=== PATIENT | female | born 1945 | race Caucasian/White ===

== ENCOUNTER 2017-02-03 18:22 | Inpatient (IN) | payer MEDICARE, OTHER ==
[~2017-02-03] VITALS: Ht 163.8 cm; Wt 84.8 kg
[2017-02-03] VITALS (7 sets, daily range): BP systolic 125–153; BP diastolic 64–67; PULSE 68–85; RESP 16–22; TEMP 98.1; O2SAT 94–98
[~2017-02-03 18:22] MED LIST: ASPI1TAB69 PO; IPRA0.03 EACH NARE; NIFE90TA2 PO; PLAV75TA29 PO; PRIL20CA9 PO; ROSU40 PO
--- NOTE | 2017-02-03 18:42 | PD ---
HPI Chief Complaint: Abdominal Pain Time Seen by Provider: 18:42 Travel History International Travel<30 days: No Contact w/Intl Traveler<30days: No Traveled to known affect area: No History of Present Illness HPI 71-year-old female with PMH of ischemic colitis presents to the ED via EMS for evaluation of sudden onset out of 10 intermittent, sharp lower abdominal pain. Pain radiates to the back. Patient also complains of nausea and watery diarrhea onset today. She denies fevers, chills, chest pain, shortness of breath , decreased appetite, dysuria. She states that this pain "feels the same" as previous episode of ischemic colitis. PCP Dr. Haywood. GI Dr. Orellana. [facility] Past Medical History Hx Anticoagulant Therapy: Yes Cancer: No Cardiovascular Problems: Yes Coronary Artery Disease: Yes Diabetes: No Endocrine: No Gastrointestinal Disorders: Yes (GERD, BAHENA'S ESOPHAGUS) Genitourinary: No Hepatitis: No Hiatal Hernia: No Hypertension: Yes Immune Disorder: No Musculoskeletal: Yes (RT WRIST FX. 2014) Neurologic: No Psychiatric: No Reproductive: No Thyroid Disease: No Past Surgical History Abdominal Surgery: No AICD: No Body Medical Devices: CARDIAC STENT Cardiac Surgery: No Ear Surgery: No Endocrine Surgery: No Eye Surgery: No Genitourinary Surgery: No Gynecologic Surgery: Yes (TOTAL HYSTERECTOMY) Hysterectomy: Yes Joint Replacement: No Neurologic Surgery: Yes (RIGHT CAROTID ENDARTERECTOMY WITH STENT) Oral Surgery: Yes (T&A) Pacemaker: No Thoracic Surgery: No Other Surgery: Yes (STENT TO COLON, BIOPSY OF THROAT) Social History Alcohol Use: Yes (OCCASIONAL) Tobacco Use: Yes (1PPD) Substance Use: No Allergies-Medications (Allergen,Severity, Reaction): Coded Allergies: No Known Allergies (Unverified , 02/03/17) Reported Meds & Prescriptions Reported Meds & Active Scripts Active Plavix (Clopidogrel Bisulfate) 75 Mg Tab 75 Mg PO DAILY 30 Days Reported Bupropion HCl 100 Mg Tab 150 Mg PO DAILY Gemfibrozil 600 Mg Tab 600 Mg PO BIDAC Take 30 minutes prior to breakfast and dinner. Prilosec (Omeprazole Magnesium) 20 Mg Tab 20 Mg PO DAILY Furosemide 40 Mg Tab 40 Mg PO DAILY Lisinopril 10 Mg Tab 10 Mg PO DAILY Metoprolol Succinate ER 24 HR (Metoprolol Succinate) 25 Mg Tab 25 Mg PO DAILY Aspirin 81 Mg Chew 81 Mg CHEW DAILY Potassium Chloride ER (Potassium Chloride) 10 Meq Cap 10 Meq PO HS Ipratropium Nasal 0.03% [place] 2 [place] EACH NARE BID Crestor (Rosuvastatin Calcium) 40 Mg Tab 40 Mg PO DAILY Review of Systems Except as stated in HPI: all other systems reviewed are Neg Physical Exam Narrative GENERAL: Well-nourished, well-developed white female in no acute distress. SKIN: Focused skin assessment warm/dry. HEAD: Normocephalic. EYES: No scleral icterus. No injection or drainage. NECK: Supple, trachea midline. No JVD or lymphadenopathy. CARDIOVASCULAR: Regular rate and rhythm without murmurs, gallops, or rubs. RESPIRATORY: Breath sounds equal bilaterally. No accessory muscle use. GASTROINTESTINAL: Abdomen soft, nondistended. Diffusely tender. No palpable masses. Hypoactive bowel sounds. MUSCULOSKELETAL: No cyanosis, or edema. BACK: Nontender without obvious deformity. No CVA tenderness. Data Data Last Documented VS Vital Signs Date Time Temp Pulse Resp B/P Pulse Ox O2 Delivery O2 Flow Rate FiO2 02/03/17 22:04 69 16 128/64 94 Room Air 02/03/17 18:34 98.1 Orders Complete Blood Count With Diff (02/03/17 18:48) Comprehensive Metabolic Panel (02/03/17 18:48) Lipase (02/03/17 18:48) Lactic Acid (02/03/17 18:48) Prothrombin Time / Inr (Pt) (02/03/17 18:48) Act Partial Throm Time (Ptt) (02/03/17 18:48) Urinalysis - C+S If Indicated (02/03/17 18:48) Iv Access Insert/Monitor (02/03/17 18:48) Ecg Monitoring (02/03/17 18:48) Oximetry (02/03/17 18:48) NPO (02/03/17 18:48) Sodium Chloride 0.9% Flush (Ns Flush) (02/03/17 19:00) Hydromorphone Pf Inj (Dilaudid Pf Inj) (02/03/17 19:00) Cta Abd/Pel W Iv Contrast W 3d (02/03/17 ) Iodixanol 320 Inj (Rad Ct) (Visipaque 32 (02/03/17 21:06) Urine Culture (02/03/17 20:50) Sodium Chlor 0.9% 1000 Ml Inj (Ns 1000 M (02/03/17 22:00) Ceftriaxone Inj (Rocephin Inj) (02/03/17 22:00) Consult Gastroenterology (02/03/17 ) Admit Order (Ed Use Only) (02/03/17 22:32) Labs Laboratory Tests Test 02/03/17 02/03/17 19:00 20:50 White Blood Count 13.0 TH/MM3 Red Blood Count 4.14 MIL/MM3 Hemoglobin 13.0 GM/DL Hematocrit 39.1 % Mean Corpuscular Volume 94.4 FL Mean Corpuscular Hemoglobin 31.4 PG Mean Corpuscular Hemoglobin 33.2 % Concent Red Cell Distribution Width 14.6 % Platelet Count 153 TH/MM3 Mean Platelet Volume 8.5 FL Neutrophils (%) (Auto) 87.3 % Lymphocytes (%) (Auto) 6.7 % Monocytes (%) (Auto) 5.5 % Eosinophils (%) (Auto) 0.0 % Basophils (%) (Auto) 0.5 % Neutrophils # (Auto) 11.3 TH/MM3 Lymphocytes # (Auto) 0.9 TH/MM3 Monocytes # (Auto) 0.7 TH/MM3 Eosinophils # (Auto) 0.0 TH/MM3 Basophils # (Auto) 0.1 TH/MM3 CBC Comment DIFF FINAL Differential Comment Prothrombin Time 11.2 SEC Prothromb Time International 1.0 RATIO Ratio Activated Partial 22.8 SEC Thromboplast Time Sodium Level 137 MEQ/L Potassium Level 4.0 MEQ/L Chloride Level 103 MEQ/L Carbon Dioxide Level 23.0 MEQ/L Anion Gap 11 MEQ/L Blood Urea Nitrogen 22 MG/DL Creatinine 1.60 MG/DL Estimat Glomerular Filtration 32 ML/MIN Rate Random Glucose 125 MG/DL Lactic Acid Level 1.4 mmol/L Calcium Level 9.5 MG/DL Total Bilirubin 0.5 MG/DL Aspartate Amino Transf 19 U/L (AST/SGOT) Alanine Aminotransferase 22 U/L (ALT/SGPT) Alkaline Phosphatase 146 U/L Total Protein 7.5 GM/DL Albumin 3.7 GM/DL Lipase 208 U/L Urine Color YELLOW Urine Turbidity HAZY Urine pH 5.5 Urine Specific [place] 1.013 Urine Protein 100 mg/dL Urine Glucose (UA) NEG mg/dL Urine Ketones NEG mg/dL Urine Occult Blood SMALL Urine Nitrite NEG Urine Bilirubin NEG Urine Urobilinogen LESS THAN 2.0 MG/DL Urine Leukocyte Esterase NEG Urine RBC 5 /hpf Urine WBC 17 /hpf Urine WBC Clumps FEW Urine Squamous Epithelial 2 /hpf Cells Urine Amorphous Sediment RARE Urine Bacteria RARE /hpf Urine Hyaline Casts 12 /lpf Urine Mucus FEW /lpf Microscopic Urinalysis Comment CULTURE INDICATED MDM Medical Decision Making Medical Screen Exam Complete: Yes Emergency Medical Condition: Yes Differential Diagnosis UTI versus colitis versus mesenteric ischemia versus other Narrative Course 71-year-old female with PMH of ischemic colitis presents to the ED via EMS for evaluation of sudden onset out of 10 intermittent, sharp lower abdominal pain. Pain radiates to the back. Patient also complains of nausea and watery diarrhea onset today. She states that this pain "feels the same" as previous episode of ischemic colitis. PCP Dr. Haywood. GI Dr. Correa. Patient is afebrile, normotensive on presentation. The abdomen is diffusely tender to palpation. No palpable masses. Hypoactive bowel sounds. No CVA tenderness. IV was established. Patient was administered 1 L normal saline, 1 mg Dilaudid. CBC: WBC 13 with a left shift. Hemoglobin 13. Coags: INR 1.0. CMP: BUN, 22, creatinine 1.6. Lactic 1.4. Lipase 208. UA: Hazy, small cold blood, few wbc clumps, rare bacteria. Culture pending. CTA of the abdomen and pelvis (preliminary reading by Dr. Light) reveals extensive atherosclerosis with interval stent placement in the left iliac artery. Right common iliac artery occluded. TONY occluded. Abnormal descending colon with wall thickening and inflammatory changes. Questionable colitis versus ischemia. Awaiting formal reading by the vascular radiologist in the AM. Patient was administered 1 g Rocephin IV. GI consult placed. Plan to admit to the medicine service for management of colitis. Discussed this plan with the patient who is agreeable. I spoke with Dr. Haywood who agrees to accept the patient to the medicine service. Please see medicine and GI notes for disposition. Landy Ornelas Feb 03, 2017 18:42
[2017-02-03] MEDS ORDERED: POTA10CA PO (18:57)
[2017-02-03] MEDS ORDERED: PRIL20TA2 PO (18:57)
[2017-02-03] MEDS ORDERED: ASPI81CH CHEW (18:57)
[2017-02-03] MEDS ORDERED: FURO40TA PO (18:57)
[2017-02-03] MEDS ORDERED: GEMF600T PO (18:57)
[2017-02-03] MEDS ORDERED: METO25TA6 PO (18:57)
[2017-02-03] MEDS ORDERED: LISI10TA3 PO (18:57)
[2017-02-03] MEDS ORDERED: BUPR100T4 PO (18:58)
[2017-02-03] MEDS ORDERED: SODIUM CHLORIDE 0.9% FLUSH 10 ML FLUSH IV FLUSH PRN ×2 (19:00→22:45)
[2017-02-03] MEDS ORDERED: HYDROmorphone HCL PF 1 MG/ML VIAL IV PUSH ONE (19:00)
[2017-02-03 19:26] LABS: AUTOMATED NEUTROPHIL # 11.3 TH/MM3 (1.8-7.7); BASOPHIL # 0.1 TH/MM3 (0-0.2); BASOPHIL % 0.5 % (0.0-2.0); HEMATOCRIT 39.1 % (35.0-46.0); HEMO FLAGS DIFF FINAL; LYMPH % 6.7 % (9.0-44.0); LYMPHOCYTE # 0.9 TH/MM3 (1.0-4.8); MEAN CELL VOLUME 94.4 FL (80.0-100.0); MEAN CORPUSCULAR HEMOGLOBIN 31.4 PG (27.0-34.0); MEAN CORPUSCULAR HGB CONC 33.2 % (32.0-36.0); MONO % 5.5 % (0.0-8.0); NEUT % 87.3 % (16.0-70.0); PLATELET COUNT 153 TH/MM3 (150-450); RED BLOOD COUNT 4.14 MIL/MM3 (4.00-5.30); RED CELL DISTRIBUTION WIDTH 14.6 % (11.6-17.2)
[2017-02-03 19:37] LABS: APTT (PATIENT) 22.8 SEC (24.3-30.1); PROTHROMBIN TIME - PATIENT 11.2 SEC (9.8-11.6)
[2017-02-03 19:39] LABS: ANION GAP 11 MEQ/L (5-15); AST (GOT) 19 U/L (15-37); BLOOD UREA NITROGEN 22 MG/DL (7-18); CHLORIDE 103 MEQ/L (98-107); GLOMERULAR FILTRATION RATE 32 ML/MIN (>89); SODIUM (NA) 137 MEQ/L (136-145)
[2017-02-03 19:40] LABS: ALT (GPT) 22 U/L (10-53)
[2017-02-03 19:42] LABS: ALKALINE PHOSPHATASE 146 U/L (45-117); TOTAL BILIRUBIN ADULT 0.5 MG/DL (0.2-1.0)
[2017-02-03] MEDS ORDERED: IODIXANOL 320 MG/ML 10 ML VIAL (for Rad CT) IV ONE (21:06)
[2017-02-03 21:25] LABS: BACTERIA, URINE RARE /hpf; BLOOD, URINE SMALL (NEG); COMMENT (UR) CULTURE INDICATED; CULTURE IF INDICATED CULTURE INDICATED; GLUCOSE,URINE NEG (NEG); HYALINE CAST, URINE 12 /lpf (RARE); KETONE, URINE NEG (NEG); MUCUS URINE FEW /lpf (OCC); NITRITE,URINE NEG (NEG); PH, URINE 5.5 (5.0-8.5); SQUAMOUS EPITHELIAL CELL URINE 2 /hpf (0-5); URINE COLOR YELLOW (YELLW/STRAW)
[2017-02-03] MEDS ORDERED: cefTRIAXone INJ 1,000 MG in SODIUM CHLORIDE 0.9% INJ 100 ML IV ONE (22:00)
[2017-02-03] MEDS ORDERED: SODIUM CHLOR 0.9% 1000 ML INJ 1,000 ML IV ONE (22:00)
[2017-02-03] MEDS ORDERED: LEVOFLOXACIN 750 MG PREMIX INJ 150 ML IV SCH ×2 (22:30→22:45)
[2017-02-03] MEDS ORDERED: SODIUM CHLOR 0.9% 1000 ML INJ 1,000 ML IV SCH (22:41)
[2017-02-03] MEDS ORDERED: LACTULOSE SYRUP 20 GM/30 ML CUP PO PRN (22:45)
[2017-02-03] MEDS ORDERED: SENNOSIDES 8.6 MG TAB PO PRN (22:45)
[2017-02-03] MEDS ORDERED: LORazepam 0.5 MG TAB PO PRN (22:45)
[2017-02-03] MEDS ORDERED: ONDANSETRON HCL 4 MG/2 ML VIAL IVP PRN (22:45)
[2017-02-03] MEDS ORDERED: BISACODYL 10 MG SUPP RECTAL PRN (22:45)
[2017-02-03] MEDS ORDERED: NALOXONE HCL 0.4 MG/ML AMP IV PRN (22:45)
[2017-02-03] MEDS ORDERED: PROCHLORPERAZINE 25 MG SUPP RECTAL PRN (22:45)
[2017-02-03] MEDS ORDERED: ACETAMINOPHEN 325 MG TAB PO PRN (22:45)
[2017-02-03] MEDS ORDERED: MAGNESIUM HYDROXIDE SUSP 30 ML CUP PO PRN (22:45)
[2017-02-03] MEDS ORDERED: PILL SPLITTER OTHER PRN (22:45)
[2017-02-03] MEDS: PANTOPRAZOLE SODIUM 40 MG VIAL IV PUSH SCH (23:50)
[2017-02-03] MEDS: DEXT 5%-NACL 0.9% 1000 ML INJ 1,000 ML IV SCH (23:50)
[2017-02-04] VITALS (10 sets, daily range): BP systolic 105–151; BP diastolic 52–67; PULSE 71–83; RESP 16–20; TEMP 97.8–98.1; O2SAT 91–95
[2017-02-04] MEDS: metroNIDAZOLE 500 MG INJ 100 ML IV SCH ×3 (01:03→17:03)
[2017-02-04 07:29] LABS: AUTOMATED NEUTROPHIL # 7.7 TH/MM3 (1.8-7.7); BASOPHIL % 0.2 % (0.0-2.0); EOSINOPHIL % 0.2 % (0.0-4.0); HEMATOCRIT 36.8 % (35.0-46.0); HEMO FLAGS DIFF FINAL; LYMPH % 12.4 % (9.0-44.0); LYMPHOCYTE # 1.2 TH/MM3 (1.0-4.8); MEAN CELL VOLUME 94.3 FL (80.0-100.0); MEAN CORPUSCULAR HEMOGLOBIN 31.5 PG (27.0-34.0); MEAN CORPUSCULAR HGB CONC 33.4 % (32.0-36.0); MONO % 7.4 % (0.0-8.0); NEUT % 79.8 % (16.0-70.0); PLATELET COUNT 122 TH/MM3 (150-450); RED CELL DISTRIBUTION WIDTH 14.5 % (11.6-17.2); WHITE BLOOD COUNT 9.6 TH/MM3 (4.0-11.0)
[2017-02-04 07:53] LABS: BICARBONATE 23.4 MEQ/L (21.0-32.0); POTASSIUM 3.5 MEQ/L (3.5-5.1)
--- NOTE | 2017-02-04 08:14 | RADRPT ---
EXAM DATE/TIME: 02/03/2017 20:42 [place] COMPARISON: AORTOGRAM, ABDOMINAL, July 17, 2016, 0:00. ANGIOGRAM, SELECT + VESSEL, July 17, 2016, 0:00. CTA ABDOMEN & PELVIS W 3D RECON, July 15, 2016, 18:23. INDICATIONS : Low abdomen pain. Evaluate for mesenteric ischemia. IV CONTRAST: 50 cc Visipaque (iodixanol) IV ORAL CONTRAST: No oral contrast ingested. RADIATION DOSE: 20.28 CTDIvol (mGy) MEDICAL HISTORY : Cardiovascular disease. Hypertension. Diverticulitis.GERD SURGICAL HISTORY : None. ENCOUNTER: Initial ACUITY: 1 day PAIN SCALE: 8/10 LOCATION: Bilateral low abdomen TECHNIQUE: Volumetric scanning was performed using a multi-row detector CT scanner. The data was post processed with a variety of visualization algorithms including full volume maximum intensity projection, multi -planar sliding thin slab reformation, curved planar reformation, and surface rendering techniques. Using automated exposure control and adjustment of the mA and/or kV according to patient size, radiat ion dose was kept as low as reasonably achievable to obtain optimal diagnostic quality images. FINDINGS: ABDOMINAL AORTA: Advanced atherosclerotic disease throughout the visualized aorta. Bulky calcified lacerated plaque in the infrarenal aorta results in moderate stenosis. The aorta is non-aneurysmal. BIFURCATION: Heavily calcified measuring 1 cm. VISCERAL ARTERIES: Interval placement of celiac artery stent. The stent is patent without significant IntraStent stenosi s. There is sharp angulation of the celiac artery just beyond the stent and residual poststenotic dil atation which accentuates the transition point. Suspect mild stenosis in the distal emory-stent region . There is variant celiac anatomy with separate origin of the right hepatic artery directly from the celiac trunk. Therefore, the common hepatic artery is relatively small in caliber with small caliber gastroduodenal artery. There is approximately 50% stenosis of the SMA origin due to mixed plaque. TONY origin is occluded with with reconstitution proximally. There are single bilateral renal arteries. T he left renal artery is patent. There is mild to moderate stenosis of the right renal artery origin. RIGHT PELVIS: Right common artery is occluded at the origin. There is reconstitution of the external iliac arteries the internal iliac artery external iliac artery is diffusely small in caliber but otherwise patent. Similarly, the right common femoral artery and visualized portions of the SFA and profunda are small in caliber but patent. LEFT PELVIS: There is severe stenosis of the proximal left common iliac artery due to mixed plaque. Internal iliac is patent. Extra iliac is patent. Common femoral and visualized portions of the SFA and profunda are patent. NON-ANGIOGRAPHIC CT ABDOMEN FINDINGS: The visualized lung bases are clear. The liver, spleen, and pancreas are normal in appearance. Redemo nstration of adreniform enlargement of the adrenal glands bilaterally. Redemonstration of bilateral r enal cysts. There is an indeterminate cystic lesion in the mid left kidney which measures 1.83 x 1.74 cm, Hounsfield units 41. This previously measured 1.75 x 1.81 cm. Multiple additional subcentimeter cystic lesions are too small to fully characterize. Kidneys are otherwise unremarkable without eviden ce for radiopaque renal calculi or hydronephrosis. The examination of the bowel demonstrates colonic wall thickening and pericolonic stranding involving nearly the entire descending colon extending to t he proximal sigmoid colon. The more distal sigmoid and rectum are decompressed but otherwise normal. No evidence for pneumatosis, abscess or significant diverticulosis in the involved segment. Appendix is visualized and normal. Main of the bowel is normal in appearance. NON-ANGIOGRAPHIC CT PELVIS FINDINGS: The bladder is decompressed. Uterus is surgically absent. No significant adnexal mass. Degenerative c hanges of the left SI joint. Mild compression deformity of L1 vertebral body similar to previous exam . Degenerative changes of the lower lumbar spine. No abnormal lytic blastic bony lesions. CONCLUSION: 1. Status post celiac artery stent placement. Stent is patent. Probable mild stenosis at the distal s tent junction exaggerated by vessel tortuosity and post stenotic dilatation. However, there is non-st andard celiac anatomy with separate origin of the right hepatic artery from the celiac trunk. This co rrelates to small caliber common hepatic artery and small caliber gastroduodenal artery with potentia l implications for collateral blood flow to the SMA. 2. Likely moderate, up to 50%, stenosis of the SMA origin. TONY is occluded at the origin. There is as sociated diffuse descending colon colitis, perhaps slightly progressed from previous examination. Thi s is concerning for continued ischemia in the TONY territory. 3. Occluded right common iliac artery origin with severe stenosis of the proximal left common iliac a rtery, unchanged from prior exam. The patient may benefit from inflow intervention. 4. 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 Typica l followup course for Bosniak 2F lesions is approximately 4 years (from 06/2016) with imaging perform ed at 6 month intervals. This may be ultrasound examination if this lesion is sufficiently visualized with ultrasound. Juan Davison MD on February 04, 2017 at 7:18 Board Certified Radiologist. This report was verified electronically.
[2017-02-04] MEDS: SODIUM CHLORIDE 0.9% FLUSH 10 ML FLUSH IV FLUSH SCH ×2 (09:24→21:00)
[2017-02-04] MEDS: ASPIRIN 81 MG CHEW TAB CHEW SCH (09:24)
[2017-02-04] MEDS: MORPHINE SULFATE 8 MG/ML INJ IV PUSH PRN ×4 (09:25→23:53)
[2017-02-04] MEDS: DEXT 5%-NACL 0.9% 1000 ML INJ 1,000 ML IV SCH ×2 (09:26→23:09)
[2017-02-04] MEDS: CLOPIDOGREL 75 MG TAB PO SCH (09:31)
--- NOTE | 2017-02-04 10:43 | PD.CONS ---
HPI History of Present Illness This is a 71 year old lady with hx ischemic colitis who presented to the ER yesterday with severe diarrhea and abd pain. Onset yesterday. The pain was lower abdominal, sharp, crampy, no aggravating or relieving factors. It is currently relieved with pain meds. She also had episodes of diarrhea followed by some watery blood that seemed independent of stool.Multiple episodes of this. She had cold sweats. SHe had similar sx 6m ago and was in ICU for 6 days and found to have ischemic colitis. She had celiac artery stenting after the last episode. Denies sick contacts, recent travel, recent use antibiotics. She does take plavix since her last hospitalization in June. SHe had colonoscopy at that hospitalization also, does not recall findings. (Nancy Ramsey) PFSH Past Medical History HTN hyperlipidemia pt cannot recall rest Past Surgical History carotic endarterectomy, right hysterectomy coronary artery stenting celiac artery stent insertion (Nancy Ramsey) Coded Allergies: No Known Allergies (Unverified , 02/03/17) Family History none Social History ETOH- occasional smokes 1ppd no illicit drugs (Nancy Ramsey) Review of Systems Constitutional: DENIES: Diaphoretic episodes Eyes: DENIES: Blurred vision Ears, nose, mouth, throat: DENIES: Hearing loss Respiratory: DENIES: Hemoptysis Cardiovascular: DENIES: Chest pain Gastrointestinal: COMPLAINS OF: Abdominal pain, Bloody stools, Diarrhea, DENIES: Black stools, Constipation, Nausea, Vomiting Genitourinary: DENIES: Hematuria Musculoskeletal: DENIES: Muscle aches Integumentary: DENIES: Abnormal pigmentation Neurologic: DENIES: Abnormal gait Psychiatric: DENIES: Confusion (Nancy Ramsey) GI Exam Vitals I&O Vital Signs Date Time Temp Pulse Resp B/P Pulse Ox O2 Delivery O2 Flow Rate FiO2 02/04/17 08:25 94 21 02/04/17 07:56 98.1 76 20 139/63 94 02/04/17 03:59 72 02/04/17 01:18 97.9 72 20 105/52 93 02/04/17 00:35 71 02/03/17 23:51 85 18 141/65 95 Room Air 02/03/17 22:04 69 16 128/64 94 Room Air 02/03/17 20:59 84 16 125/64 94 Room Air 02/03/17 20:21 77 18 153/67 94 Room Air 02/03/17 19:17 79 18 140/65 98 Room Air 02/03/17 18:39 22 02/03/17 18:39 71 22 137/64 98 Room Air 02/03/17 18:34 98.1 68 22 137/64 98 Imaging Last Impressions Abdomen/Pelvis CT 02/03/17 0000 Signed Impressions: Service Date/Time: Friday, February 03, 2017 20:42 - CONCLUSION: 1. Status post celiac artery stent placement. Stent is patent. Probable mild stenosis at the distal stent junction exaggerated by vessel tortuosity and post stenotic dilatation. However, there is non-standard celiac anatomy with separate origin of the right hepatic artery from the celiac trunk. This correlates to small caliber common hepatic artery and small caliber gastroduodenal artery with potential implications for collateral blood flow to the SMA. 2. Likely moderate , up to 50%%, stenosis of the SMA origin. TONY is occluded at the origin. There is associated diffuse descending colon colitis, perhaps slightly progressed from previous examination. This is concerning for continued ischemia in the TONY territory. 3. 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 The patient may benefit from inflow intervention. 4. 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 Typical followup course for Bosniak 2F lesions is approximately 4 years (from 06/2016) with imaging performed at 6 month intervals. This may be ultrasound examination if this lesion is sufficiently visualized with ultrasound. Juan Davison MD Laboratory Test 02/03/17 02/03/17 02/04/17 19:00 20:50 06:46 White Blood Count 13.0 TH/MM3 9.6 TH/MM3 Red Blood Count 4.14 MIL/MM3 3.90 MIL/MM3 Hemoglobin 13.0 GM/DL 12.3 GM/DL Hematocrit 39.1 % 36.8 % Mean Corpuscular Volume 94.4 FL 94.3 FL Mean Corpuscular Hemoglobin 31.4 PG 31.5 PG Mean Corpuscular Hemoglobin 33.2 % 33.4 % Concent Red Cell Distribution Width 14.6 % 14.5 % Platelet Count 153 TH/MM3 122 TH/MM3 Mean Platelet Volume 8.5 FL 8.6 FL Neutrophils (%) (Auto) 87.3 % 79.8 % Lymphocytes (%) (Auto) 6.7 % 12.4 % Monocytes (%) (Auto) 5.5 % 7.4 % Eosinophils (%) (Auto) 0.0 % 0.2 % Basophils (%) (Auto) 0.5 % 0.2 % Neutrophils # (Auto) 11.3 TH/MM3 7.7 TH/MM3 Lymphocytes # (Auto) 0.9 TH/MM3 1.2 TH/MM3 Monocytes # (Auto) 0.7 TH/MM3 0.7 TH/MM3 Eosinophils # (Auto) 0.0 TH/MM3 0.0 TH/MM3 Basophils # (Auto) 0.1 TH/MM3 0.0 TH/MM3 CBC Comment DIFF FINAL DIFF FINAL Differential Comment Prothrombin Time 11.2 SEC Prothromb Time International 1.0 RATIO Ratio Activated Partial 22.8 SEC Thromboplast Time Sodium Level 137 MEQ/L 141 MEQ/L Potassium Level 4.0 MEQ/L 3.5 MEQ/L Chloride Level 103 MEQ/L 107 MEQ/L Carbon Dioxide Level 23.0 MEQ/L 23.4 MEQ/L Anion Gap 11 MEQ/L 11 MEQ/L Blood Urea Nitrogen 22 MG/DL 22 MG/DL Creatinine 1.60 MG/DL 1.19 MG/DL Estimat Glomerular Filtration 32 ML/MIN 45 ML/MIN Rate Random Glucose 125 MG/DL 121 MG/DL Lactic Acid Level 1.4 mmol/L Calcium Level 9.5 MG/DL 8.8 MG/DL Total Bilirubin 0.5 MG/DL Aspartate Amino Transf 19 U/L (AST/SGOT) Alanine Aminotransferase 22 U/L (ALT/SGPT) Alkaline Phosphatase 146 U/L Total Protein 7.5 GM/DL Albumin 3.7 GM/DL Lipase 208 U/L Urine Color YELLOW Urine Turbidity HAZY Urine pH 5.5 Urine Specific [place] 1.013 Urine Protein 100 mg/dL Urine Glucose (UA) NEG mg/dL Urine Ketones NEG mg/dL Urine Occult Blood SMALL Urine Nitrite NEG Urine Bilirubin NEG Urine Urobilinogen LESS THAN 2.0 MG/DL Urine Leukocyte Esterase NEG Urine RBC 5 /hpf Urine WBC 17 /hpf Urine WBC Clumps FEW Urine Squamous Epithelial 2 /hpf Cells Urine Amorphous Sediment RARE Urine Bacteria RARE /hpf Urine Hyaline Casts 12 /lpf Urine Mucus FEW /lpf Microscopic Urinalysis Comment CULTURE INDICATED Date/Time Procedure Status Source Growth 02/03/17 20:50 Urine Culture Received Urine Clean Catch Pending Physical Examination HEENT: EOMI; normocephalic; atraumatic; no jaundice. CHEST: CTA CARDIAC: RRR ABDOMEN: Soft, obese, mild lower abdominal TTP; no hepatosplenomegaly; bowel sounds are present in all four quadrants. EXTREMITIES: No clubbing, cyanosis, or edema. SKIN: Normal; no rash; no jaundice. [employer] IN[employer] CONTROL CLERK: No focal deficits; alert and oriented times three. (Nancy Ramsey) Assessment and Plan Plan ASSESSMENT - diarrhea, rectal bleeding - hx ischemic colitis with previous stenting 2015. Dr. Cruz d/w IR. CT 02-03-17 --> 1. Status post celiac artery stent placement. Stent is patent. Probable mild stenosis at the distal stent junction exaggerated by vessel tortuosity and post stenotic dilatation. However, there is non-standard celiac anatomy with separate origin of the right hepatic artery from the celiac trunk. This correlates to small caliber common hepatic artery and small caliber gastroduodenal artery with potential implications for collateral blood flow to the SMA. 2. Likely moderate, up to 50%%, stenosis of the SMA origin. TONY is occluded at the origin. There is associated diffuse descending colon colitis, perhaps slightly progressed from previous examination. This is concerning for continued ischemia in the TONY territory. 3. 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 The patient may benefit from inflow intervention. 4. 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 Typical followup course for Bosniak 2F lesions is approximately 4 years (from 06/2016) with imaging performed at 6 month intervals. This may be ultrasound examination if this lesion is sufficiently visualized with ultrasound. PLAN - consult vascular surgeon - NPO for now - monitor HH - supportive care - further recommendations to follow This pt seen by myself and Dr Cruz and this note is written on his behalf ( Nancy Ramsey) Physician Comments Discussed with IR for possible re-stenting after vascular surgery evaluation. Further recommendations to follow. (Jovan Cruz MD) Nancy Ramsey Feb 04, 2017 10:43 Jovna Cruz MD Feb 04, 2017 23:47
[2017-02-04] MEDS: buPROPion HCL 100 MG TAB PO SCH (12:21)
--- NOTE | 2017-02-04 15:08 | MH ---
cc: SCOOTER HAYWOOD MD DATE OF ADMISSION: 02/04/2017 CHIEF COMPLAINT Abdominal pain, diarrhea. HISTORY OF PRESENT ILLNESS Karen Knight is a 71-year-old female. She has been a long-time smoker and has had difficulty cutting down on the cigarettes. Unfortunately she developed severe diarrhea and abdominal pain and presented to the emergency room. I was called for admission for colitis versus vascular occlusion. She had celiac artery stent placement, however, there was probable stenosis at the stent junction and stenosis of the SMA origin. There is occlusion of the TONY. There is also noted descending colon colitis. LABORATORY WBC is within normal limits. CBC is normal except for platelets 122. Creatinine 1.19, potassium 3.5. INR 1.0. IMAGING As noted above for celiac artery stent placement with some occlusion. PAST MEDICAL HISTORY 1. Coronary artery disease. 2. Kincaid's esophagus. 3. Hypertension. PAST SURGICAL HISTORY 1. Cardiac stent placement. 2. Total hysterectomy. 3. Right carotid endarterectomy. 4. SMA stent. SOCIAL HISTORY One pack per day smoker. No illicit drug usage. ALLERGIES No known drug allergies. MEDICATIONS Home medications: 1. Bupropion. 2. Gemfibrozil. 3. Prilosec. 4. Lasix. 5. Lisinopril. 6. Metoprolol. 7. Aspirin. 8. Potassium. 9. Ipratropium nasal. 10. Crestor REVIEW OF SYSTEMS Weakness, diarrhea, left shoulder pain. We did a recent MRI in my office. Otherwise negative 14-point review of systems except as above. PHYSICAL EXAMINATION VITAL SIGNS: Temperature 98.0, pulse 82, respirations 16, blood pressure 151/67, pulse oximetry 95. GENERAL: In general she is an alert female. She is laying flat. She is ill-appearing. HEENT: Oropharynx is clear. CHEST: Clear. CARDIOVASCULAR: Regular rate and rhythm. ABDOMEN: Soft. Tender diffusely in all quadrants to light palpation. Normoactive bowel sounds. There is some rebound in the left lower quadrant. EXTREMITIES: 1+ edema. ASSESSMENT 1. 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 2. SMA stenosis. 3. Descending colitis. 4. Right common iliac artery severe stenosis. 5. Hypertension. 6. Hyperglycemia. 7. Renal insufficiency. 8. Elevated LFTs. 9. COPD. 10. Smoker. 11. Left rotator cuff tear. PLAN 1. n.p.o. 2. D5 normal saline. 3. Vascular surgery consult. 4. IV Levaquin. 5. IV Flagyl. 6. Infectious Disease consult for likely ischemic colitis versus more unlikely infectious colitis. 7. Clonidine p.r.n. 8. Plavix 75 mg daily. 9. Ativan p.r.n. 10. Morphine p.r.n. 11. Protonix 40 mg IV daily. 12. Urine culture. 13. Telemetry. 14. SCDs. 15. TEDs. 16. Inpatient admission for the above diagnosis and plan. The patient would without inpatient admission from ischemic bowel or infectious colitis. Expect 3-4 days inpatient admission; however, if she needs intervention it could likely be longer. 17. Will continue with smoking cessation aggressively as I had recently started her on Wellbutrin. Scooter Haywood MD RP/HUMERA /2:29 PM /2:57 PM
--- NOTE | 2017-02-04 18:51 | PD.VS.CON ---
History of Present Illness Chief Complaint: Pt c/o weakness, dizziness and lower sharp abdominal pain Pt reported "multiple episodes" of diarrhea times 1 day Consult Requested by: Dr. Ramsey History of Present Illness Mrs. Knight is an ill appearing 71 year old pleasant female patient with a PMH of HTN, CAD, Kincaid's Esophagus and recent celiac artery stent insertion ( 6M ago). Pt arrived to the ED c/o multiple diarrhea episodes with sharp lower quadrant abdominal pain times 1 day. Pt is with loss of appetite and reported that her pain is constant and is not exacerbated after eating meals. Patient noted pain is controlled with pain mediation at this time. Pt denies nausea and vomiting (Maria Antonia Lockwood) Past/Family/Social History Past Medical History HTN CAD Kincaid's Esophagus Hyperlipidemia Past Surgical History R CEA Hysterectomy Coronary Artery Stenting Celiac Artery Stent Insertion Social History EtOH- Occasional Current everyday smoker (1 pack) No illicit drug usage Family History Pt denies (Maria Antonia Lockwood) Home Medications Active Scripts Clopidogrel (Plavix)75 Mg Tab75 Mg PO DAILY 30 Days Prov:Kelton Anaya MD 07/19/16 Reported Medications Bupropion HCl 100 Mg Tsh384 Mg PO DAILY Ref 0 02/03/17 Gemfibrozil 600 Mg Jhh544 Mg PO BIDAC #60 TAB Ref 0 Take 30 minutes prior to breakfast and dinner. 02/03/17 Omeprazole Magnesium (Prilosec)20 Mg Tab20 Mg PO DAILY 02/03/17 Furosemide 40 Mg Tab40 Mg PO DAILY #30 TAB Ref 0 02/03/17 Lisinopril 10 Mg Tab10 Mg PO DAILY #30 TAB Ref 0 02/03/17 Metoprolol Succinate ER 24 HR 25 Mg Tab25 Mg PO DAILY #30 TAB Ref 0 02/03/17 Aspirin 81 Mg Chew81 Mg CHEW DAILY Ref 0 02/03/17 Potassium Chloride ER 10 Meq Cap10 Meq PO HS #30 CAP Ref 0 02/03/17 Ipratropium Nasal 0.03% Spray2 [place] EACH NARE BID 07/02/16 Rosuvastatin (Crestor)40 Mg Tab40 Mg PO DAILY Ref 0 07/02/16 Discontinued Scripts Nifedipine (Nifedipine ER)90 Mg Tab90 Mg PO DAILY #30 TAB Ref 1 Prov:Kelton Anaya MD 07/19/16 Coded Allergies: No Known Allergies (Unverified , 02/03/17) Review of Systems Gastrointestinal: COMPLAINS OF: Abdominal pain, Diarrhea (Maria Antonia Lockwood) Physical Exam Vitals/I&O Date Time Temp Pulse Resp B/P Pulse Ox O2 Delivery O2 Flow Rate FiO2 02/04/17 15:34 98.1 72 16 140/65 95 02/04/17 14:42 18 02/04/17 11:52 98.0 82 16 151/67 95 02/04/17 08:25 94 21 02/04/17 08:22 82 02/04/17 07:56 98.1 76 20 139/63 94 02/04/17 03:59 72 02/04/17 01:18 97.9 72 20 105/52 93 02/04/17 00:35 71 02/03/17 23:51 85 18 141/65 95 Room Air 02/03/17 22:04 69 16 128/64 94 Room Air 02/03/17 20:59 84 16 125/64 94 Room Air 02/03/17 20:21 77 18 153/67 94 Room Air 02/03/17 19:17 79 18 140/65 98 Room Air 02/03/17 18:39 22 02/03/17 18:39 71 22 137/64 98 Room Air 02/03/17 18:34 98.1 68 22 137/64 98 02/04/17 02/04/17 02/04/17 07:00 15:00 23:00 Intake Total 830 ml Output Total 200 ml Balance 630 ml Neuro: CN 2-12 A&OX3 Heart: +S1,S2 Lungs: BS CTA Abdomen: Lower Abdominal pain Pt tender to touch all 4 quad worse on the Left upper and lower side +BS (Maria Antonia Lockwood) Laboratory Tests Test 02/03/17 02/03/17 02/04/17 19:00 20:50 06:46 White Blood Count 13.0 9.6 Red Blood Count 4.14 3.90 Hemoglobin 13.0 12.3 Hematocrit 39.1 36.8 Mean Corpuscular Volume 94.4 94.3 Mean Corpuscular Hemoglobin 31.4 31.5 Mean Corpuscular Hemoglobin 33.2 33.4 Concent Red Cell Distribution Width 14.6 14.5 Platelet Count 153 122 Mean Platelet Volume 8.5 8.6 Neutrophils (%) (Auto) 87.3 79.8 Lymphocytes (%) (Auto) 6.7 12.4 Monocytes (%) (Auto) 5.5 7.4 Eosinophils (%) (Auto) 0.0 0.2 Basophils (%) (Auto) 0.5 0.2 Neutrophils # (Auto) 11.3 7.7 Lymphocytes # (Auto) 0.9 1.2 Monocytes # (Auto) 0.7 0.7 Eosinophils # (Auto) 0.0 0.0 Basophils # (Auto) 0.1 0.0 CBC Comment DIFF FINAL DIFF FINAL Differential Comment Prothrombin Time 11.2 Prothromb Time International 1.0 Ratio Activated Partial 22.8 Thromboplast Time Sodium Level 137 141 Potassium Level 4.0 3.5 Chloride Level 103 107 Carbon Dioxide Level 23.0 23.4 Anion Gap 11 11 Blood Urea Nitrogen 22 22 Creatinine 1.60 1.19 Estimat Glomerular Filtration 32 45 Rate Random Glucose 125 121 Lactic Acid Level 1.4 Calcium Level 9.5 8.8 Total Bilirubin 0.5 Aspartate Amino Transf 19 (AST/SGOT) Alanine Aminotransferase 22 (ALT/SGPT) Alkaline Phosphatase 146 Total Protein 7.5 Albumin 3.7 Lipase 208 Urine Color YELLOW Urine Turbidity HAZY Urine pH 5.5 Urine Specific [place] 1.013 Urine Protein 100 Urine Glucose (UA) NEG Urine Ketones NEG Urine Occult Blood SMALL Urine Nitrite NEG Urine Bilirubin NEG Urine Urobilinogen LESS THAN 2.0 Urine Leukocyte Esterase NEG Urine RBC 5 Urine WBC 17 Urine WBC Clumps FEW Urine Squamous Epithelial 2 Cells Urine Amorphous Sediment RARE Urine Bacteria RARE Urine Hyaline Casts 12 Urine Mucus FEW Microscopic Urinalysis Comment CULTURE INDICATED Date/Time Procedure Status Source Growth 02/03/17 20:50 Urine Culture - Preliminary Resulted Urine Clean Catch <10,000 CFU/ML GRAM POSITIVE GRISEL Last 48 hours Impressions Abdomen/Pelvis CT 02/03/17 0000 Signed Impressions: Service Date/Time: Friday, February 03, 2017 20:42 - CONCLUSION: 1. Status post celiac artery stent placement. Stent is patent. Probable mild stenosis at the distal stent junction exaggerated by vessel tortuosity and post stenotic dilatation. However, there is non-standard celiac anatomy with separate origin of the right hepatic artery from the celiac trunk. This correlates to small caliber common hepatic artery and small caliber gastroduodenal artery with potential implications for collateral blood flow to the SMA. 2. Likely moderate , up to 50%%, stenosis of the SMA origin. TONY is occluded at the origin. There is associated diffuse descending colon colitis, perhaps slightly progressed from previous examination. This is concerning for continued ischemia in the TONY territory. 3. 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 The patient may benefit from inflow intervention. 4. 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 Typical followup course for Bosniak 2F lesions is approximately 4 years (from 06/2016) with imaging performed at 6 month intervals. This may be ultrasound examination if this lesion is sufficiently visualized with ultrasound. Juan Davison MD (Maria Antonia Lockwood) Assessment and Plan Assessment: (1) Abdominal pain Status: Acute (2) Mesenteric artery stenosis Status: Acute Plan Potential Ischemic colon unlikely R/T SMA or Celiac Stenosis Plan Recommend Antibiotic therapy Serial abdominal exams Frequent WBC surveillance Consult General Surgery Maria Antonia DANG [facility] [phone] (Maria Antonia Lockwood) Plan Pt with h/o celiac stenting with reported resolution of more intense pain about 6m ago. Pain this time started promptly yesterday and she has no antecendent post-prandial abdominal pain and no weight loss or food fear. On exam, modest TTP L LQ, no peritonitis. WBC normal. My review of CT - large celiac stent with mild ISR; SMA with maybe 50% stenosis. I think she may in fact have descending/sigmoid colon ischemic colitis but I am not convinced that it is related to mild/moderate SMA stenosis. Rec antibiotics , gen surgery consult and will re-evaluate repeated. If pain doesn't go away or gets worse with/out food, will perform mesenteric angiogram/stent. Tone Cohn MD FACS groundman [facility] - Heart and Vascular Surgery at [facility] [phone] (Tone Cohn MD) Problem Qualifiers (1) Abdominal pain: Qualified Code: R10.30 - Lower abdominal pain Maria Antonia Lockwood Feb 04, 2017 18:50 Tone Cohn MD Feb 04, 2017 21:02
[2017-02-05] VITALS (8 sets, daily range): BP systolic 96–167; BP diastolic 46–72; PULSE 80–92; RESP 16–20; TEMP 97.8–98.5; O2SAT 92–97
[2017-02-05] MEDS: PANTOPRAZOLE SODIUM 40 MG VIAL IV PUSH SCH ×2 (00:06→21:23)
[2017-02-05] MEDS: metroNIDAZOLE 500 MG INJ 100 ML IV SCH ×4 (00:10→23:11)
[2017-02-05] MEDS: MORPHINE SULFATE 8 MG/ML INJ IV PUSH PRN ×2 (03:58→08:13)
--- NOTE | 2017-02-05 07:10 | PD.VS.PN ---
Subjective Subjective/Hospital Course Pt sleeping soundly this morning. Upon awakening, notes pain slightly better but still persistent L LQ No BM yesterday or today Objective Vitals/I&O Date Time Temp Pulse Resp B/P Pulse Ox O2 Delivery O2 Flow Rate FiO2 02/05/17 05:22 98.1 90 16 150/67 93 02/05/17 01:00 Nasal Cannula 2.00 02/05/17 00:00 Room Air 02/05/17 00:00 97.8 92 16 158/72 92 02/04/17 20:36 83 02/04/17 20:00 Room Air 02/04/17 18:57 97.8 81 16 138/65 91 02/04/17 15:34 98.1 72 16 140/65 95 02/04/17 14:42 18 02/04/17 11:52 98.0 82 16 151/67 95 02/04/17 08:25 94 21 02/04/17 08:22 82 02/04/17 07:56 98.1 76 20 139/63 94 Physical Exam Mild TTP LLQ and suprapubic, no rebound; + voluntary guarding palpable UE pulses Laboratory Date/Time Procedure Status Source Growth 02/03/17 20:50 Urine Culture - Preliminary Resulted Urine Clean Catch <10,000 CFU/ML GRAM POSITIVE GRISEL Assessment and Plan Assessment: (1) Abdominal pain Status: Acute (2) Mesenteric artery stenosis Status: Acute Plan Slightly improved pain with antibiotics Rec recheck WBC and try po intake Rec gen surgery consult If worsening pain or pain with po intake, will perform angiogram and likely SMA stent Tone Cohn MD FACS electrical systems drafter [facility] - Heart and Vascular Surgery at [facility] [phone] Problem Qualifiers (1) Abdominal pain: Qualified Code: R10.30 - Lower abdominal pain Tone Cohn MD Feb 05, 2017 07:10
[2017-02-05] MEDS: SODIUM CHLORIDE 0.9% FLUSH 10 ML FLUSH IV FLUSH SCH ×2 (09:00→21:00)
[2017-02-05 09:26] LABS: AUTOMATED NEUTROPHIL # 5.3 TH/MM3 (1.8-7.7); BASOPHIL % 0.3 % (0.0-2.0); EOSINOPHIL % 0.7 % (0.0-4.0); HEMATOCRIT 35.2 % (35.0-46.0); HEMO FLAGS DIFF FINAL; LYMPH % 14.4 % (9.0-44.0); MEAN CELL VOLUME 95.8 FL (80.0-100.0); MEAN CORPUSCULAR HEMOGLOBIN 31.5 PG (27.0-34.0); MEAN CORPUSCULAR HGB CONC 32.8 % (32.0-36.0); NEUT % 76.6 % (16.0-70.0); PLATELET COUNT 111 TH/MM3 (150-450); RED BLOOD COUNT 3.67 MIL/MM3 (4.00-5.30); RED CELL DISTRIBUTION WIDTH 14.6 % (11.6-17.2)
[2017-02-05 10:10] LABS: BICARBONATE 21.5 MEQ/L (21.0-32.0); POTASSIUM 3.2 MEQ/L (3.5-5.1)
--- NOTE | 2017-02-05 11:25 | HHI.FPPN ---
Subjective Remarks reqs to eat no abdom pain d/w RN Objective Vitals Vital Signs Date Time Temp Pulse Resp B/P Pulse Ox O2 Delivery O2 Flow Rate FiO2 02/05/17 08:00 98.1 83 20 148/65 97 02/05/17 05:22 98.1 90 16 150/67 93 02/05/17 01:00 Nasal Cannula 2.00 02/05/17 00:00 Room Air 02/05/17 00:00 97.8 92 16 158/72 92 02/04/17 20:36 83 02/04/17 20:00 Room Air 02/04/17 18:57 97.8 81 16 138/65 91 02/04/17 15:34 98.1 72 16 140/65 95 02/04/17 14:42 18 02/04/17 11:52 98.0 82 16 151/67 95 I/O 02/04/17 02/04/17 02/04/17 02/05/17 02/05/17 02/05/17 07:00 15:00 23:00 07:00 15:00 23:00 Intake Total 830 ml 354 ml 0 ml Output Total 200 ml 400 ml Balance 630 ml 354 ml -400 ml Intake Oral 0 ml 0 ml IV Total 830 ml 354 ml Output Urine Total 200 ml 400 ml # Bowel Movements 0 Result Diagram: 02/05/1780202/05/17802 Objective Remarks GENERAL: SKIN: Warm and dry. HEAD: Atraumatic. Normocephalic. EYES: Pupils equal and round. No scleral icterus. No injection or drainage. ENT: No nasal bleeding or discharge. Mucous membranes pink and moist. NECK: Trachea midline. No JVD. CARDIOVASCULAR: Regular rate and rhythm. RESPIRATORY: No accessory muscle use. Clear to auscultation. Breath sounds equal bilaterally. GASTROINTESTINAL: Abdomen soft, non-tender, nondistended. Hepatic and splenic margins not palpable. MUSCULOSKELETAL: Extremities without clubbing, cyanosis, or edema. No obvious deformities. NEUROLOGICAL: Awake and alert. No obvious cranial nerve deficits. Motor grossly within normal limits. Five out of 5 muscle strength in the arms and legs. Normal speech. PSYCHIATRIC: Appropriate mood and affect; insight and judgment normal. Medications and IVs Current Medications Medications (Trade) Dose Ordered Sig/Geri Route Start Time Stop Time Status Last Admin (Aspirin Chew) 81 mg DAILY CHEW 02/04/17 09:00 02/04/17 09:24 (Wellbutrin) 150 mg DAILY PO 02/04/17 09:00 02/04/17 12:21 (Plavix) 75 mg DAILY PO 02/04/17 09:00 02/04/17 09:31 (Pill Splitter) 1 ea UNSCH PRN OTHER 02/03/17 22:45 (NS Flush) 2 ml UNSCH PRN IV FLUSH 02/03/17 22:45 02/05/17 03:59 (NS Flush) 2 ml BID IV FLUSH 02/04/17 09:00 02/04/17 09:24 (Tylenol) 650 mg Q4H PRN PO 02/03/17 22:45 (Zofran Inj) 4 mg Q6H PRN IVP 02/03/17 22:45 (Compazine Supp) 25 mg Q12H PRN RECTAL 02/03/17 22:45 (Ambien) 5 mg HS PRN PO 02/03/17 22:45 (Narcan Inj) 0.4 mg UNSCH PRN IV 02/03/17 22:45 (Milk Of Magnesia Liq) 30 ml Q12H PRN PO 02/03/17 22:45 (Senokot) 17.2 mg Q12H PRN PO 02/03/17 22:45 (Dulcolax Supp) 10 mg DAILY PRN RECTAL 02/03/17 22:45 (Lactulose Liq) 30 ml DAILY PRN PO 02/03/17 22:45 ([place] 5-325 Mg) 1 tab Q4H PRN PO 02/03/17 22:45 (Ativan) 0.5 mg Q8H PRN PO 02/03/17 22:45 Clonidine 0.1 mg 0.1 mg Q6H PRN PO 02/03/17 22:45 (Flagyl 500 Mg Inj) 100 ml @ 100 mls/hr Q8H IV 02/04/17 00:00 02/05/17 08:12 (Morphine Inj) 5 mg Q4H PRN IV PUSH 02/03/17 22:45 02/05/17 08:13 Pantoprazole Sodium 40 mg 40 mg Q24H IV PUSH 02/03/17 22:45 02/05/17 00:06 Dextrose/Sodium Chloride 1,000 ml @ 84 mls/hr [id number] IV 02/03/17 23:00 02/04/17 23:09 (Levaquin 750 Mg Premix Inj) 150 ml @ 100 mls/hr Q48H IV 02/03/17 22:30 02/03/17 23:50 A/P Assessment and Plan ASSESSMENT- 1. 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 2. SMA stenosis. 3. Descending colitis. 4. Right common iliac artery severe stenosis. 5. Hypertension. 6. Hyperglycemia. 7. Renal insufficiency. 8. Elevated LFTs. 9. COPD. 10. Smoker. 11. Left rotator cuff tear. 12. hypokalemia PLAN- start PO D5 normal saline Vascular surgery consult. General surg consult. IV Levaquin. IV Flagyl. Infectious Disease consult for likely ischemic colitis versus more unlikely infectious colitis. Clonidine p.r.n. Plavix 75 mg daily. Ativan p.r.n. Morphine p.r.n. Protonix 40 mg IV daily. Urine culture. Telemetry. SCDs. TEDs. Will continue with smoking cessation aggressively as I had recently started her on Wellbutrin. Brett Haywood MD Feb 05, 2017 11:25
[2017-02-05] MEDS ORDERED: POTASSIUM CHLORIDE 20 MEQ CONTROLLED RELEASE TAB PO ONE (12:15)
[2017-02-05] MEDS: buPROPion HCL 100 MG TAB PO SCH (12:20)
[2017-02-05] MEDS: CLOPIDOGREL 75 MG TAB PO SCH (12:20)
[2017-02-05] MEDS: ASPIRIN 81 MG CHEW TAB CHEW SCH (12:20)
[2017-02-05] MEDS: LEVOFLOXACIN 750 MG PREMIX INJ 150 ML IV SCH (12:22)
[2017-02-05] MEDS: cloNIDine HCL 0.1 MG TAB PO PRN (12:56)
--- NOTE | 2017-02-05 13:40 | HHI.GIFU ---
Subjective Remarks Pt resting in bed. Says her pain is improved. No BM today, no bleeding. ( Nancy Ramsey) Objective Vitals I&O Vital Signs Date Time Temp Pulse Resp B/P Pulse Ox O2 Delivery O2 Flow Rate FiO2 02/05/17 12:00 98.5 87 18 167/72 92 02/05/17 08:00 98.1 83 20 148/65 97 02/05/17 07:15 Nasal Cannula 2.00 21 02/05/17 05:22 98.1 90 16 150/67 93 02/05/17 01:00 Nasal Cannula 2.00 02/05/17 00:00 Room Air 02/05/17 00:00 97.8 92 16 158/72 92 02/04/17 20:36 83 02/04/17 20:00 Room Air 02/04/17 18:57 97.8 81 16 138/65 91 02/04/17 15:34 98.1 72 16 140/65 95 02/04/17 14:42 18 I/O 02/04/17 02/04/17 02/04/17 02/05/17 02/05/17 02/05/17 07:00 15:00 23:00 07:00 15:00 23:00 Intake Total 830 ml 354 ml 0 ml Output Total 200 ml 400 ml Balance 630 ml 354 ml -400 ml Intake Oral 0 ml 0 ml IV Total 830 ml 354 ml Output Urine Total 200 ml 400 ml # Bowel Movements 0 Laboratory Laboratory Tests Test 02/05/17 08:03 White Blood Count 7.0 Red Blood Count 3.67 Hemoglobin 11.5 Hematocrit 35.2 Mean Corpuscular Volume 95.8 Mean Corpuscular Hemoglobin 31.5 Mean Corpuscular Hemoglobin 32.8 Concent Red Cell Distribution Width 14.6 Platelet Count 111 Mean Platelet Volume 8.9 Neutrophils (%) (Auto) 76.6 Lymphocytes (%) (Auto) 14.4 Monocytes (%) (Auto) 8.0 Eosinophils (%) (Auto) 0.7 Basophils (%) (Auto) 0.3 Neutrophils # (Auto) 5.3 Lymphocytes # (Auto) 1.0 Monocytes # (Auto) 0.6 Eosinophils # (Auto) 0.0 Basophils # (Auto) 0.0 CBC Comment DIFF FINAL Differential Comment Sodium Level 141 Potassium Level 3.2 Chloride Level 110 Carbon Dioxide Level 21.5 Anion Gap 10 Blood Urea Nitrogen 10 Creatinine 0.85 Estimat Glomerular Filtration 66 Rate Random Glucose 117 Calcium Level 9.2 Date/Time Procedure Status Source Growth 02/03/17 20:50 Urine Culture - Final Complete Urine Clean Catch 10-50,000 CFU/ML MIXED GRISEL... Imaging Last Impressions Abdomen/Pelvis CT 02/03/17 0000 Signed Impressions: Service Date/Time: Friday, February 03, 2017 20:42 - CONCLUSION: 1. Status post celiac artery stent placement. Stent is patent. Probable mild stenosis at the distal stent junction exaggerated by vessel tortuosity and post stenotic dilatation. However, there is non-standard celiac anatomy with separate origin of the right hepatic artery from the celiac trunk. This correlates to small caliber common hepatic artery and small caliber gastroduodenal artery with potential implications for collateral blood flow to the SMA. 2. Likely moderate , up to 50%%, stenosis of the SMA origin. TONY is occluded at the origin. There is associated diffuse descending colon colitis, perhaps slightly progressed from previous examination. This is concerning for continued ischemia in the TONY territory. 3. 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 The patient may benefit from inflow intervention. 4. 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 Typical followup course for Bosniak 2F lesions is approximately 4 years (from 06/2016) with imaging performed at 6 month intervals. This may be ultrasound examination if this lesion is sufficiently visualized with ultrasound. Juan Davison MD Physical Exam HEENT: EOMI; normocephalic; atraumatic; no jaundice. CHEST: CTA CARDIAC: RRR ABDOMEN: Soft, obese, diffuse Ttp; no hepatosplenomegaly; bowel sounds are present in all four quadrants. EXTREMITIES: No clubbing, cyanosis, or edema. SKIN: Normal; no rash; no jaundice. MINT MACHINE OPERATOR: No focal deficits; alert and oriented times three. (Nancy Ramsey) Assessment and Plan Plan ASSESSMENT - diarrhea, rectal bleeding - hx ischemic colitis with previous stenting 2015. Dr. Cruz d/w IR. Vascular surgery was consulted and recommended GS consult- pending. CT 02-03-17 --> 1. Status post celiac artery stent placement. Stent is patent. Probable mild stenosis at the distal stent junction exaggerated by vessel tortuosity and post stenotic dilatation. However, there is non-standard celiac anatomy with separate origin of the right hepatic artery from the celiac trunk. This correlates to small caliber common hepatic artery and small caliber gastroduodenal artery with potential implications for collateral blood flow to the SMA. 2. Likely moderate, up to 50%%, stenosis of the SMA origin. TONY is occluded at the origin. There is associated diffuse descending colon colitis, perhaps slightly progressed from previous examination. This is concerning for continued ischemia in the TONY territory. 3. 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 The patient may benefit from inflow intervention. 4. 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 Typical followup course for Bosniak 2F lesions is approximately 4 years (from 06/2016) with imaging performed at 6 month intervals. This may be ultrasound examination if this lesion is sufficiently visualized with ultrasound. PLAN - GS consult pending - IR consult - NPO for now - monitor HH - supportive care - further recommendations to follow This pt seen by myself and Dr Cruz and this note is written on his behalf ( Nancy Ramsey) Physician Comments Seen and examined, plan as above. Will follow up with you. (Jovan Cruz MD) Nancy Ramsey Feb 05, 2017 13:40 Jovan Cruz MD Feb 05, 2017 17:06
--- NOTE | 2017-02-05 14:18 | PD.ID.CON ---
History of Present Illness Service ID Consult Requested By Dr Haywood Reason for Consult colitis Primary Care Physician Brett Haywood MD Diagnoses: History of Present Illness 71 yo female known to me I saw her about 6 mos ago for similar presentation, she had abdominal pain and diarrhea, turned out to have ischemic colitis has stent placed to her SMA She got better, but acocofing to her " never back to her baseline" she cont to have some malaise, but denies abdominal pain, diarrhea SHe developped bloody diarrhea x 1 day yesterday, some abdominal discomnfort deneis disuria Had profuse sweats, some chills No fever, chills today UA abnormal, with puyria, clx with 10-50 K CFU of mixed cher likely contam She presented afbrile but has leukoctosis 13 K, improved today with BSA ( levaquine, flagyl) Seen by Dr Cohn, plans to perform angiogram and likely SMA stent CT showed diffuse descending colon colitis, perhaps slightly progressed from previous examination, concerning for continued ischemia in the TONY territory and occluded right common iliac artery origin with severe stenosis of the proximal left common iliac artery, unchanged from prior exam. Review of Systems Except as stated in HPI: all other systems reviewed are Neg Past Family Social History Allergies: Coded Allergies: No Known Allergies (Unverified , 02/03/17) Past Medical History HTN CAD Kincaid's Esophagus Hyperlipidemia Past Surgical History R CEA Hysterectomy Coronary Artery Stenting Celiac Artery Stent Insertion Active Ordered Medications Medications where reviewed in EMR Antibiotics Include: levaquine flagyl Family History Non-Contributory. Social History EtOH- Occasional Current everyday smoker (1 pack) No illicit drug usage Physical Exam Vital Signs Vital Signs Date Time Temp Pulse Resp B/P Pulse Ox O2 Delivery O2 Flow Rate FiO2 02/05/17 12:00 98.5 87 18 167/72 92 02/05/17 08:00 98.1 83 20 148/65 97 02/05/17 07:15 Nasal Cannula 2.00 21 02/05/17 05:22 98.1 90 16 150/67 93 02/05/17 01:00 Nasal Cannula 2.00 02/05/17 00:00 Room Air 02/05/17 00:00 97.8 92 16 158/72 92 02/04/17 20:36 83 02/04/17 20:00 Room Air 02/04/17 18:57 97.8 81 16 138/65 91 02/04/17 15:34 98.1 72 16 140/65 95 02/04/17 14:42 18 Physical Exam CONSTITUTIONAL/GENERAL: This is an adequately nourished patient, in no apparent distress. TUBES/LINES/DRAINS: SKIN: No jaundice, rashes, or lesions. Skin temperature appropriate. Not diaphoretic. HEAD: Atraumatic. Normocephalic. EYES: Pupils equal and round and reactive. Extraocular motions intact. No scleral icterus. No injection or drainage. Fundi not examined. ENT: Hearing grossly normal. Oral mucosae moist without visible erythema, exudates, masses, or lesions. NECK: Trachea midline. Supple, nontender. No palpable thyroid enlargement or nodularity. CARDIOVASCULAR: Regular rate and rhythm without murmurs, gallops, or rubs. No JVD. Peripheral pulses symmetric. RESPIRATORY/CHEST: Symmetric, unlabored respirations. Clear to auscultation. Breath sounds equal bilaterally. No wheezes, rales, or rhonchi. GASTROINTESTINAL: Abdomen soft, mildly diffusely tender, moderatelydistended. No hepato-splenomegaly, or palpable masses. No guarding. Bowel sounds present. GENITOURINARY: Without palpable bladder distension. MUSCULOSKELETAL: Extremities without clubbing, cyanosis, or edema. No joint tenderness or effusion noted. No mottling or clubbing. LYMPHATICS: No palpable cervical or supraclavicular adenopathy. NEUROLOGICAL: Awake and alert. Motor and sensory grossly within normal limits. Follows commands. Clear speecvh Moves all extremities. PSYCHIATRIC: No obvious anxiety/depression. no apparent hallucinations or other psychotic thought process. Laboratory Laboratory Tests Test 02/05/17 08:03 White Blood Count 7.0 Red Blood Count 3.67 Hemoglobin 11.5 Hematocrit 35.2 Mean Corpuscular Volume 95.8 Mean Corpuscular Hemoglobin 31.5 Mean Corpuscular Hemoglobin 32.8 Concent Red Cell Distribution Width 14.6 Platelet Count 111 Mean Platelet Volume 8.9 Neutrophils (%) (Auto) 76.6 Lymphocytes (%) (Auto) 14.4 Monocytes (%) (Auto) 8.0 Eosinophils (%) (Auto) 0.7 Basophils (%) (Auto) 0.3 Neutrophils # (Auto) 5.3 Lymphocytes # (Auto) 1.0 Monocytes # (Auto) 0.6 Eosinophils # (Auto) 0.0 Basophils # (Auto) 0.0 CBC Comment DIFF FINAL Differential Comment Sodium Level 141 Potassium Level 3.2 Chloride Level 110 Carbon Dioxide Level 21.5 Anion Gap 10 Blood Urea Nitrogen 10 Creatinine 0.85 Estimat Glomerular Filtration 66 Rate Random Glucose 117 Calcium Level 9.2 Date/Time Procedure Status Source Growth 02/03/17 20:50 Urine Culture - Final Complete Urine Clean Catch 10-50,000 CFU/ML MIXED CHER... Result Diagram: 02/05/17 0803 02/05/17 0803 Imaging Last Impressions Abdomen/Pelvis CT 02/03/17 0000 Signed Impressions: Service Date/Time: Friday, February 03, 2017 20:42 - CONCLUSION: 1. Status post celiac artery stent placement. Stent is patent. Probable mild stenosis at the distal stent junction exaggerated by vessel tortuosity and post stenotic dilatation. However, there is non-standard celiac anatomy with separate origin of the right hepatic artery from the celiac trunk. This correlates to small caliber common hepatic artery and small caliber gastroduodenal artery with potential implications for collateral blood flow to the SMA. 2. Likely moderate , up to 50%%, stenosis of the SMA origin. TONY is occluded at the origin. There is associated diffuse descending colon colitis, perhaps slightly progressed from previous examination. This is concerning for continued ischemia in the TONY territory. 3. 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 The patient may benefit from inflow intervention. 4. 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 Typical followup course for Bosniak 2F lesions is approximately 4 years (from 06/2016) with imaging performed at 6 month intervals. This may be ultrasound examination if this lesion is sufficiently visualized with ultrasound. Juan Davison MD Assessment and Plan Assessment and Plan Probable ischemic colitis in a pt with known mesenteric artery stenosis - Dr Cohn - [facility] interventions planned pending arteriogram results C.diff is less likely , though will need to be r/o'd Leukocytosis, mildl on presentation - improved with abx - cont empiric broad-spectrum antibiotics - chk stool for c.diff - agree with current treatment plan Niya Alicia MD Feb 05, 2017 14:18
--- NOTE | 2017-02-05 15:59 | PD.CONS ---
cc: Rupesh Black MD HPI Service General Surgery Consult Requested By Dr. Haywood Reason for Consult Abdominal pain Severe diarrhea Primary Care Physician Brett Haywood MD History of Present Illness This is a 71 year old female with a past medical history of coronary artery disease, Kincaid's esophagus, and hypertension. She presents to the emergency department on Wednesday with severe diarrhea and abdominal pain. Initially , now 03/08, sharp, diffuse, no association with nausea or vomiting. She also complained of severe back pain. Approximately 6 months ago she had a celiac artery stent placement. She has been in usual health until this past Wednesday. She denies any sick contacts. She has been evaluated by vascular surgery. A CT abdomen and pelvis was obtained which showed diffuse distending colitis with a concern for continued ischemia. A General Surgery consult has been requested. Review of Systems Constitutional: COMPLAINS OF: Fever, Chills Endocrine: DENIES: Polydipsia, Polyuria, Polyphagia Eyes: DENIES: Blurred vision, Diplopia Ears, nose, mouth, throat: DENIES: Hearing loss, Vertigo Respiratory: DENIES: Apneas, Cough Cardiovascular: DENIES: Chest pain, Syncope Gastrointestinal: COMPLAINS OF: Abdominal pain, Diarrhea, DENIES: Nausea, Vomiting Genitourinary: DENIES: Urinary frequency Musculoskeletal: DENIES: Joint pain Integumentary: DENIES: Abnormal pigmentation Hematologic/lymphatic: DENIES: Bruising Immunologic/allergic: DENIES: Eczema Neurologic: DENIES: Headache, Localized weakness Psychiatric: DENIES: Mood changes, Depression, Hallucinations Past Family Social History Past Medical History Coronary artery disease Kincaid's esophagus Hypertension Past Surgical History Cardiac stent placement next line total hysterectomy Right carotid endarterectomy SMA stent Tonsillectomy Reported Medications See chart but please note she does take Plavix Allergies: Coded Allergies: No Known Allergies (Unverified , 02/03/17) Active Ordered Medications Current Medications Medications (Trade) Dose Ordered Sig/Geri Route Start Time Stop Time Status Last Admin (Aspirin Chew) 81 mg DAILY CHEW 02/04/17 09:00 02/05/17 12:20 (Wellbutrin) 150 mg DAILY PO 02/04/17 09:00 02/05/17 12:20 (Plavix) 75 mg DAILY PO 02/04/17 09:00 02/05/17 12:20 (Pill Splitter) 1 ea UNSCH PRN OTHER 02/03/17 22:45 (NS Flush) 2 ml UNSCH PRN IV FLUSH 02/03/17 22:45 02/05/17 03:59 (NS Flush) 2 ml BID IV FLUSH 02/04/17 09:00 02/04/17 09:24 (Tylenol) 650 mg Q4H PRN PO 02/03/17 22:45 (Zofran Inj) 4 mg Q6H PRN IVP 02/03/17 22:45 (Compazine Supp) 25 mg Q12H PRN RECTAL 02/03/17 22:45 (Ambien) 5 mg HS PRN PO 02/03/17 22:45 (Narcan Inj) 0.4 mg UNSCH PRN IV 02/03/17 22:45 (Milk Of Magnesia Liq) 30 ml Q12H PRN PO 02/03/17 22:45 (Senokot) 17.2 mg Q12H PRN PO 02/03/17 22:45 (Dulcolax Supp) 10 mg DAILY PRN RECTAL 02/03/17 22:45 (Lactulose Liq) 30 ml DAILY PRN PO 02/03/17 22:45 (Sherwood 5-325 Mg) 1 tab Q4H PRN PO 02/03/17 22:45 (Ativan) 0.5 mg Q8H PRN PO 02/03/17 22:45 Clonidine 0.1 mg 0.1 mg Q6H PRN PO 02/03/17 22:45 02/05/17 12:56 (Flagyl 500 Mg Inj) 100 ml @ 100 mls/hr Q8H IV 02/04/17 00:00 02/05/17 08:12 (Morphine Inj) 5 mg Q4H PRN IV PUSH 02/03/17 22:45 02/05/17 08:13 Pantoprazole Sodium 40 mg 40 mg Q24H IV PUSH 02/03/17 22:45 02/05/17 00:06 Dextrose/Sodium Chloride 1,000 ml @ 84 mls/hr [id number] IV 02/03/17 23:00 02/04/17 23:09 (Levaquin 750 Mg Premix Inj) 150 ml @ 100 mls/hr Q24H IV 02/05/17 13:00 02/05/17 12:22 Family History Noncontributory Social History Positive tobacco use approximately 1 pack per day Positive EtOH use-socially; on the weekends Denies illicit drug use- Physical Exam Vital Signs Vital Signs Date Time Temp Pulse Resp B/P Pulse Ox O2 Delivery O2 Flow Rate FiO2 02/05/17 12:00 98.5 87 18 167/72 92 02/05/17 08:00 98.1 83 20 148/65 97 02/05/17 07:15 Nasal Cannula 2.00 21 02/05/17 05:22 98.1 90 16 150/67 93 02/05/17 01:00 Nasal Cannula 2.00 02/05/17 00:00 Room Air 02/05/17 00:00 97.8 92 16 158/72 92 02/04/17 20:36 83 02/04/17 20:00 Room Air 02/04/17 18:57 97.8 81 16 138/65 91 02/04/17 15:34 98.1 72 16 140/65 95 Physical Exam GENERAL: Alert and awake resting in bed in no acute distress. SKIN: Warm and dry. HEAD: Atraumatic. Normocephalic. EYES: Pupils equal and round. No scleral icterus. No injection or drainage. ENT: No nasal bleeding or discharge. Mucous membranes pink and moist. NECK: Trachea midline. CARDIOVASCULAR: Regular rate and rhythm. RESPIRATORY: No accessory muscle use. Clear to auscultation. Breath sounds equal bilaterally. GASTROINTESTINAL: Abdomen soft, nondistended. Mild tender with palpation in the LEFT lower quadrant. MUSCULOSKELETAL: Extremities without clubbing, cyanosis, or edema. No obvious deformities. NEUROLOGICAL: Awake and alert. No obvious cranial nerve deficits. Motor grossly within normal limits. Five out of 5 muscle strength in the arms and legs. Normal speech. PSYCHIATRIC: Appropriate mood and affect; insight and judgment normal. Laboratory Laboratory Tests Test 02/05/17 08:03 White Blood Count 7.0 Red Blood Count 3.67 Hemoglobin 11.5 Hematocrit 35.2 Mean Corpuscular Volume 95.8 Mean Corpuscular Hemoglobin 31.5 Mean Corpuscular Hemoglobin 32.8 Concent Red Cell Distribution Width 14.6 Platelet Count 111 Mean Platelet Volume 8.9 Neutrophils (%) (Auto) 76.6 Lymphocytes (%) (Auto) 14.4 Monocytes (%) (Auto) 8.0 Eosinophils (%) (Auto) 0.7 Basophils (%) (Auto) 0.3 Neutrophils # (Auto) 5.3 Lymphocytes # (Auto) 1.0 Monocytes # (Auto) 0.6 Eosinophils # (Auto) 0.0 Basophils # (Auto) 0.0 CBC Comment DIFF FINAL Differential Comment Sodium Level 141 Potassium Level 3.2 Chloride Level 110 Carbon Dioxide Level 21.5 Anion Gap 10 Blood Urea Nitrogen 10 Creatinine 0.85 Estimat Glomerular Filtration 66 Rate Random Glucose 117 Calcium Level 9.2 Date/Time Procedure Status Source Growth 02/03/17 20:50 Urine Culture - Final Complete Urine Clean Catch 10-50,000 CFU/ML MIXED GRISEL... Assessment and Plan Assessment and Plan 71 year old female with abdominal pain and severe diarrhea -CT abd/pelvis reviewed -VSS; WBC 7 today -Afebrile -ID consulted ---c-diff pending -Continue abdominal exams ---currently benign -Advance diet as tolerated -No surgical plans at this time -Will continue to follow Discussed Condition With Dr. Wayne Knight Attending Statement patient seen at bedside. abdominal pain improving non operative management will follow Attestation The exam, history, and the medical decision-making described in the above note were completed with the assistance of the mid-level provider. I reviewed and agree with the findings presented. I attest that I had a [id number] encounter with the patient on the same day, and personally performed and documented my assessment and findings in the medical record. Mirian Burnette Feb 05, 2017 15:58 Rupesh Black MD Feb 17, 2017 22:32
[2017-02-05] MEDS: DEXT 5%-NACL 0.9% 1000 ML INJ 1,000 ML IV SCH ×2 (18:06→21:23)
[2017-02-06 04:08] VITALS: BP 156/80; PULSE 93; RESP 16; TEMP 98.1; O2SAT 95
[2017-02-06 08:00] VITALS: BP 167/86; PULSE 84; PULSE 91; RESP 20; TEMP 98; O2SAT 97
[2017-02-06] MEDS: metroNIDAZOLE 500 MG INJ 100 ML IV SCH ×2 (08:58→16:52)
[2017-02-06] MEDS: ASPIRIN 81 MG CHEW TAB CHEW SCH (08:58)
[2017-02-06] MEDS: DEXT 5%-NACL 0.9% 1000 ML INJ 1,000 ML IV SCH ×2 (08:58→22:27)
[2017-02-06] MEDS: buPROPion HCL 100 MG TAB PO SCH (08:58)
[2017-02-06] MEDS: SODIUM CHLORIDE 0.9% FLUSH 10 ML FLUSH IV FLUSH SCH ×2 (08:58→20:43)
[2017-02-06] MEDS: cloNIDine HCL 0.1 MG TAB PO PRN (09:18)
[2017-02-06] MEDS: CLOPIDOGREL 75 MG TAB PO SCH (09:18)
[2017-02-06 09:31] LABS: AUTOMATED NEUTROPHIL # 4.7 TH/MM3 (1.8-7.7); BASOPHIL % 0.3 % (0.0-2.0); EOSINOPHIL # 0.1 TH/MM3 (0-0.4); EOSINOPHIL % 1.4 % (0.0-4.0); HEMATOCRIT 35.5 % (35.0-46.0); HEMO FLAGS DIFF FINAL; LYMPH % 15.5 % (9.0-44.0); MEAN CELL VOLUME 94.2 FL (80.0-100.0); MEAN CORPUSCULAR HEMOGLOBIN 31.2 PG (27.0-34.0); MEAN CORPUSCULAR HGB CONC 33.2 % (32.0-36.0); MONO % 7.2 % (0.0-8.0); NEUT % 75.6 % (16.0-70.0); PLATELET COUNT 105 TH/MM3 (150-450); RED BLOOD COUNT 3.77 MIL/MM3 (4.00-5.30); RED CELL DISTRIBUTION WIDTH 13.9 % (11.6-17.2); WHITE BLOOD COUNT 6.2 TH/MM3 (4.0-11.0)
[2017-02-06 09:51] LABS: BICARBONATE 19.2 MEQ/L (21.0-32.0)
[2017-02-06 09:54] LABS: POTASSIUM 2.8 MEQ/L (3.5-5.1)
[2017-02-06] MEDS ORDERED: POTASSIUM CHLORIDE 10 MEQ CONTROLLED RELEASE TAB PO ONE (10:45)
--- NOTE | 2017-02-06 11:52 | HHI.PR ---
Subjective Remarks Follow-up ischemic colitis/mesenteric artery stenosis 02/06/17-patient seen and examined, denies any diarrheal episode 24 hours. She also denies any abdominal pain over the past 48 hours. Currently afebrile. Would like to eat Objective Vitals Vital Signs Date Time Temp Pulse Resp B/P Pulse Ox O2 Delivery O2 Flow Rate FiO2 02/06/17 08:00 Room Air 02/06/17 08:00 98.0 91 20 167/86 97 02/06/17 04:08 98.1 93 16 156/80 95 02/05/17 23:00 98.0 85 16 156/70 95 02/05/17 21:35 80 02/05/17 21:34 95 Room Air 02/05/17 21:02 16 02/05/17 20:21 98.2 82 18 96/46 95 02/05/17 16:00 98.1 83 18 127/60 92 02/05/17 12:00 98.5 87 18 167/72 92 I/O 02/05/17 02/05/17 02/05/17 02/06/17 02/06/17 02/06/17 07:00 15:00 23:00 07:00 15:00 23:00 Intake Total 0 ml 200 ml 600 ml Output Total 400 ml 2000 ml 1154 ml Balance -400 ml -2000 ml 200 ml -554 ml Intake Oral 0 ml 200 ml 600 ml Output Urine Total 400 ml 2000 ml 1154 ml # Voids 0 # Bowel Movements 0 0 0 0 Result Diagram: 02/06/17 0804 02/06/17 0804 Imaging Last Impressions Abdomen/Pelvis CT 02/03/17 0000 Signed Impressions: Service Date/Time: Friday, February 03, 2017 20:42 - CONCLUSION: 1. Status post celiac artery stent placement. Stent is patent. Probable mild stenosis at the distal stent junction exaggerated by vessel tortuosity and post stenotic dilatation. However, there is non-standard celiac anatomy with separate origin of the right hepatic artery from the celiac trunk. This correlates to small caliber common hepatic artery and small caliber gastroduodenal artery with potential implications for collateral blood flow to the SMA. 2. Likely moderate , up to 50%%, stenosis of the SMA origin. TONY is occluded at the origin. There is associated diffuse descending colon colitis, perhaps slightly progressed from previous examination. This is concerning for continued ischemia in the TONY territory. 3. 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 The patient may benefit from inflow intervention. 4. 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 Typical followup course for Bosniak 2F lesions is approximately 4 years (from 06/2016) with imaging performed at 6 month intervals. This may be ultrasound examination if this lesion is sufficiently visualized with ultrasound. Juan Davison MD Objective Remarks GENERAL: NAD SKIN: Warm and dry. HEAD: Normocephalic. EYES: No scleral icterus. No injection or drainage. NECK: Supple, trachea midline. No JVD or lymphadenopathy. CARDIOVASCULAR: Regular rate and rhythm without murmurs, gallops, or rubs. RESPIRATORY: Breath sounds equal bilaterally. No accessory muscle use. GASTROINTESTINAL: Abdomen soft, non-tender, nondistended. MUSCULOSKELETAL: No cyanosis, or edema. BACK: Nontender without obvious deformity. No CVA tenderness. A/P Problem List: (1) Mesenteric artery stenosis ICD Code: K55.1 Status: Acute (2) Ischemic colitis ICD Code: K55.9 Status: Acute (3) HTN (hypertension) ICD Code: I10 Status: Acute (4) Hypokalemia ICD Code: E87.6 Status: Acute Assessment and Plan 71 year-old female with Mesentery artery stenosis Management per vascular surgery and continue current care Continue current pain management Resume diet Ischemic colitis Currently on IV antibiotics including Levaquin and Flagyl Management per infectious disease doctor, vascular surgery Hypokalemia Replace with 60 mEq of potassium and monitor CAD COPD Hypertension Hyperlipidemia Continue outpatient medications DVT prophylaxis: Bilateral SCDs GI prophylaxis: PPI Corwin Shukla MD Feb 06, 2017 11:52
[2017-02-06 12:00] VITALS: BP 145/70; PULSE 84; RESP 20; TEMP 98.1; O2SAT 97
--- NOTE | 2017-02-06 12:41 | HHI.PR ---
Subjective Subjective Notes Patient reports no abdominal pain presently. No flatus today; last BM two days ago. Objective Vitals/I&O Vital Signs Date Time Temp Pulse Resp B/P Pulse Ox O2 Delivery O2 Flow Rate FiO2 02/06/17 08:00 Room Air 02/06/17 08:00 98.0 91 20 167/86 97 02/05/17 07:15 2.00 21 Labs Laboratory Tests Test 02/06/17 08:04 White Blood Count 6.2 Red Blood Count 3.77 Hemoglobin 11.8 Hematocrit 35.5 Mean Corpuscular Volume 94.2 Mean Corpuscular Hemoglobin 31.2 Mean Corpuscular Hemoglobin 33.2 Concent Red Cell Distribution Width 13.9 Platelet Count 105 Mean Platelet Volume 8.7 Neutrophils (%) (Auto) 75.6 Lymphocytes (%) (Auto) 15.5 Monocytes (%) (Auto) 7.2 Eosinophils (%) (Auto) 1.4 Basophils (%) (Auto) 0.3 Neutrophils # (Auto) 4.7 Lymphocytes # (Auto) 1.0 Monocytes # (Auto) 0.5 Eosinophils # (Auto) 0.1 Basophils # (Auto) 0.0 CBC Comment DIFF FINAL Differential Comment Sodium Level 142 Potassium Level 2.8 Chloride Level 110 Carbon Dioxide Level 19.2 Anion Gap 13 Blood Urea Nitrogen 6 Creatinine 0.66 Estimat Glomerular Filtration 89 Rate Random Glucose 118 Calcium Level 9.2 Date/Time Procedure Status Source Growth 02/03/17 20:50 Urine Culture - Final Complete Urine Clean Catch 10-50,000 CFU/ML MIXED GRISEL... Lungs: Clear Abdomen: Non-tender Narrative Exam Abdomen mildly distended, but nontender A/P Assessment and Plan Patient with mesenteric vessel stenosis (SMA) and TONY occlusion; abdomen benign. Plan: Continued observation; ok for clears. Will follow Memo Schneider MD Feb 06, 2017 12:40
[2017-02-06] MEDS: LEVOFLOXACIN 750 MG PREMIX INJ 150 ML IV SCH (12:57)
[2017-02-06 16:00] VITALS: BP 146/69; PULSE 87; RESP 18; TEMP 98.2; O2SAT 97
--- NOTE | 2017-02-06 16:01 | HHI.GIFU ---
Subjective Remarks Patient is resting in bed, doing good, no bleeding reported, no nausea, no vomiting or abd pain (Ryan Calvo) Objective Vitals I&O Vital Signs Date Time Temp Pulse Resp B/P Pulse Ox O2 Delivery O2 Flow Rate FiO2 02/06/17 12:00 98.1 84 20 145/70 97 02/06/17 08:00 Room Air 02/06/17 08:00 98.0 91 20 167/86 97 02/06/17 04:08 98.1 93 16 156/80 95 02/05/17 23:00 98.0 85 16 156/70 95 02/05/17 21:35 80 02/05/17 21:34 95 Room Air 02/05/17 21:02 16 02/05/17 20:21 98.2 82 18 96/46 95 02/05/17 16:00 98.1 83 18 127/60 92 I/O 02/05/17 02/05/17 02/05/17 02/06/17 02/06/17 02/06/17 07:00 15:00 23:00 07:00 15:00 23:00 Intake Total 0 ml 200 ml 600 ml Output Total 400 ml 2000 ml 1154 ml Balance -400 ml -2000 ml 200 ml -554 ml Intake Oral 0 ml 200 ml 600 ml Output Urine Total 400 ml 2000 ml 1154 ml # Voids 0 # Bowel Movements 0 0 0 0 Laboratory Laboratory Tests Test 02/06/17 08:04 White Blood Count 6.2 Red Blood Count 3.77 Hemoglobin 11.8 Hematocrit 35.5 Mean Corpuscular Volume 94.2 Mean Corpuscular Hemoglobin 31.2 Mean Corpuscular Hemoglobin 33.2 Concent Red Cell Distribution Width 13.9 Platelet Count 105 Mean Platelet Volume 8.7 Neutrophils (%) (Auto) 75.6 Lymphocytes (%) (Auto) 15.5 Monocytes (%) (Auto) 7.2 Eosinophils (%) (Auto) 1.4 Basophils (%) (Auto) 0.3 Neutrophils # (Auto) 4.7 Lymphocytes # (Auto) 1.0 Monocytes # (Auto) 0.5 Eosinophils # (Auto) 0.1 Basophils # (Auto) 0.0 CBC Comment DIFF FINAL Differential Comment Sodium Level 142 Potassium Level 2.8 Chloride Level 110 Carbon Dioxide Level 19.2 Anion Gap 13 Blood Urea Nitrogen 6 Creatinine 0.66 Estimat Glomerular Filtration 89 Rate Random Glucose 118 Calcium Level 9.2 Date/Time Procedure Status Source Growth 02/03/17 20:50 Urine Culture - Final Complete Urine Clean Catch 10-50,000 CFU/ML MIXED GRISEL... Imaging Last Impressions Abdomen/Pelvis CT 02/03/17 0000 Signed Impressions: Service Date/Time: Friday, February 03, 2017 20:42 - CONCLUSION: 1. Status post celiac artery stent placement. Stent is patent. Probable mild stenosis at the distal stent junction exaggerated by vessel tortuosity and post stenotic dilatation. However, there is non-standard celiac anatomy with separate origin of the right hepatic artery from the celiac trunk. This correlates to small caliber common hepatic artery and small caliber gastroduodenal artery with potential implications for collateral blood flow to the SMA. 2. Likely moderate , up to 50%%, stenosis of the SMA origin. TONY is occluded at the origin. There is associated diffuse descending colon colitis, perhaps slightly progressed from previous examination. This is concerning for continued ischemia in the TONY territory. 3. 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 The patient may benefit from inflow intervention. 4. 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 Typical followup course for Bosniak 2F lesions is approximately 4 years (from 06/2016) with imaging performed at 6 month intervals. This may be ultrasound examination if this lesion is sufficiently visualized with ultrasound. Juan Davison MD Physical Exam HEENT: EOMI; normocephalic; atraumatic; no jaundice. CHEST: CTA CARDIAC: RRR ABDOMEN: Soft, obese, diffuse Ttp; no hepatosplenomegaly; bowel sounds are present in all four quadrants. EXTREMITIES: No clubbing, cyanosis, or edema. SKIN: Normal; no rash; no jaundice. [employer]ER ASSISTANT: No focal deficits; alert and oriented times three. (Ryan Calvo) Assessment and Plan Plan ASSESSMENT - diarrhea, rectal bleeding- No more bleeding, hgb stable. hx ischemic colitis with previous stenting 06/2016. Dr. Cruz d/w IR. Vascular surgery was consulted and recommended GS consult- pending.S/P EGD/Colonoscopy (07/13/16)---> portal gastropathy, gastritis, esophagitis, colitis. pathology gastric antral mucosa without significant histologic abnormality, acute colitis with extensive necrosis and a dense associated neutrophilic infiltrate- ischemic vs. pseudomembranous colitis. CT 02-03-17 --> 1. Status post celiac artery stent placement. Stent is patent. Probable mild stenosis at the distal stent junction exaggerated by vessel tortuosity and post stenotic dilatation. However, there is non-standard celiac anatomy with separate origin of the right hepatic artery from the celiac trunk. This correlates to small caliber common hepatic artery and small caliber gastroduodenal artery with potential implications for collateral blood flow to the SMA. 2. Likely moderate, up to 50%%, stenosis of the SMA origin. TONY is occluded at the origin. There is associated diffuse descending colon colitis, perhaps slightly progressed from previous examination. This is concerning for continued ischemia in the TONY territory. 3. 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 The patient may benefit from inflow intervention. 4. 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 Typical followup course for Bosniak 2F lesions is approximately 4 years (from 06/2016) with imaging performed at 6 month intervals. This may be ultrasound examination if this lesion is sufficiently visualized with ultrasound. PLAN - ALF - IR consult - S/p GS, no surgical intervention at this time - Cont. Flagyl and cipro - Consider repeat colonoscopy but this could be done as an OP - monitor HH - supportive care - further recommendations to follow This pt seen by myself and Dr Jha and this note is written on his behalf ( Ryan Calvo) Physician Comments Patient seen and examined Agree with above Continue with current supportive care Monitor labs Further plans as per the surgical service Not much to add from a GI standpoint we will sign off (Chet Jha MD ) Ryan Calvo Feb 06, 2017 16:01 Chet Jha MD Feb 06, 2017 18:56
[2017-02-06 20:00] VITALS: BP 146/68; PULSE 89; PULSE 90; RESP 22; TEMP 97.8; O2SAT 96
[2017-02-06] MEDS: PANTOPRAZOLE SODIUM 40 MG VIAL IV PUSH SCH (22:26)
[2017-02-07] VITALS (8 sets, daily range): BP systolic 152–193; BP diastolic 64–95; PULSE 66–86; RESP 18–22; TEMP 97.2–98.1; O2SAT 94–98
[2017-02-07] MEDS: cloNIDine HCL 0.1 MG TAB PO PRN ×4 (00:18→21:15)
[2017-02-07] MEDS: metroNIDAZOLE 500 MG INJ 100 ML IV SCH ×3 (00:18→17:01)
[2017-02-07 06:52] LABS: C. DIFF EPI 027 PRESUMPTIVE NEGATIVE (NEGATIVE); C. DIFF TOXIN PCR NEGATIVE (NEGATIVE)
[2017-02-07 07:07] LABS: AUTOMATED NEUTROPHIL # 4.1 TH/MM3 (1.8-7.7); BASOPHIL % 0.7 % (0.0-2.0); EOSINOPHIL # 0.1 TH/MM3 (0-0.4); EOSINOPHIL % 1.7 % (0.0-4.0); HEMATOCRIT 34.4 % (35.0-46.0); HEMO FLAGS DIFF FINAL; LYMPH % 18.3 % (9.0-44.0); MEAN CELL VOLUME 92.4 FL (80.0-100.0); MEAN CORPUSCULAR HEMOGLOBIN 32.2 PG (27.0-34.0); MEAN CORPUSCULAR HGB CONC 34.9 % (32.0-36.0); MONO % 8.1 % (0.0-8.0); NEUT % 71.2 % (16.0-70.0); PLATELET COUNT 124 TH/MM3 (150-450); RED BLOOD COUNT 3.73 MIL/MM3 (4.00-5.30); WHITE BLOOD COUNT 5.7 TH/MM3 (4.0-11.0)
[2017-02-07 07:17] LABS: BICARBONATE 21.8 MEQ/L (21.0-32.0)
[2017-02-07 07:24] LABS: POTASSIUM 2.8 MEQ/L (3.5-5.1)
[2017-02-07] MEDS: ASPIRIN 81 MG CHEW TAB CHEW SCH (08:21)
[2017-02-07] MEDS: DEXT 5%-NACL 0.9% 1000 ML INJ 1,000 ML IV SCH (08:21)
[2017-02-07] MEDS: SODIUM CHLORIDE 0.9% FLUSH 10 ML FLUSH IV FLUSH SCH ×2 (08:21→21:15)
[2017-02-07] MEDS: buPROPion HCL 100 MG TAB PO SCH (08:21)
[2017-02-07] MEDS: CLOPIDOGREL 75 MG TAB PO SCH (08:21)
[2017-02-07] MEDS ORDERED: POTASSIUM CHLORIDE 20 MEQ CONTROLLED RELEASE TAB PO ONE (09:15)
[2017-02-07] MEDS ORDERED: POTASSIUM CHLORIDE 10 MEQ CONTROLLED RELEASE TAB PO ONE (09:15)
--- NOTE | 2017-02-07 09:43 | HHI.PR ---
Subjective Remarks Follow-up ischemic colitis/mesenteric artery stenosis 02/06/17-patient seen and examined, denies any diarrheal episode 24 hours. She also denies any abdominal pain over the past 48 hours. Currently afebrile. Would like to eat 02/07/17-patient seen and examined, reports 3 episodes of diarrhea episodes last night otherwise nondysmorphic. Denies any abdominal pain with by mouth intake. Currently afebrile Objective Vitals Vital Signs Date Time Temp Pulse Resp B/P Pulse Ox O2 Delivery O2 Flow Rate FiO2 02/07/17 08:53 Room Air 02/07/17 08:49 66 02/07/17 08:00 97.2 76 20 158/95 96 02/07/17 04:00 Room Air 02/07/17 04:00 97.6 76 18 193/76 94 02/07/17 00:00 98.1 86 20 178/77 96 02/07/17 00:00 Room Air 02/06/17 20:00 Room Air 02/06/17 20:00 90 02/06/17 20:00 97.8 89 22 146/68 96 02/06/17 16:00 98.2 87 18 146/69 97 02/06/17 12:00 98.1 84 20 145/70 97 I/O 02/06/17 02/06/17 02/06/17 02/07/17 02/07/17 02/07/17 07:00 15:00 23:00 07:00 15:00 23:00 Intake Total 600 ml 3065 ml 567 ml 648 ml Output Total 1154 ml 1000 ml 550 ml 1600 ml Balance -554 ml 2065 ml 17 ml -952 ml Intake Oral 600 ml 360 ml 240 ml IV Total 2705 ml 327 ml 648 ml Output Urine Total 1154 ml 1000 ml 550 ml 1600 ml # Bowel Movements 0 0 1 2 Result Diagram: 02/07/1759 02/07/17 0559 Objective Remarks GENERAL: NAD SKIN: Warm and dry. HEAD: Normocephalic. EYES: No scleral icterus. No injection or drainage. NECK: Supple, trachea midline. No JVD or lymphadenopathy. CARDIOVASCULAR: Regular rate and rhythm without murmurs, gallops, or rubs. RESPIRATORY: Breath sounds equal bilaterally. No accessory muscle use. GASTROINTESTINAL: Abdomen soft, non-tender, nondistended. MUSCULOSKELETAL: No cyanosis, or edema. BACK: Nontender without obvious deformity. No CVA tenderness. A/P Problem List: (1) Mesenteric artery stenosis ICD Code: K55.1 Status: Acute (2) Ischemic colitis ICD Code: K55.9 Status: Acute (3) HTN (hypertension) ICD Code: I10 Status: Acute (4) Hypokalemia ICD Code: E87.6 Status: Acute Assessment and Plan 71 year-old female with Mesentery artery stenosis Management per vascular surgery and continue current care Continue current pain management; no plan for surgery at this time Advance diet as tolerated Ischemic colitis Currently on IV antibiotics including Levaquin and Flagyl Management per infectious disease doctor, vascular surgery Hypokalemia Replace with 80 mEq of potassium and monitor CAD COPD Hypertension Hyperlipidemia Continue outpatient medications DVT prophylaxis: Bilateral SCDs GI prophylaxis: PPI Corwin Shukla MD Feb 07, 2017 09:43
--- NOTE | 2017-02-07 09:55 | HHI.PR ---
Subjective Subjective Notes no issues, tolerating diet, no fevers, pain resolved Objective Vitals/I&O Vital Signs Date Time Temp Pulse Resp B/P Pulse Ox O2 Delivery O2 Flow Rate FiO2 02/07/17 08:53 Room Air 02/07/17 08:49 66 02/07/17 08:00 97.2 20 158/95 96 02/05/17 07:15 2.00 21 Labs Laboratory Tests Test 02/07/17 02/07/17 04:10 05:59 Stool C. difficile Toxin (PCR) NEGATIVE Stl C. difficile Toxin PRESUMPTIVE Epiderm 027 NEGATIVE White Blood Count 5.7 Red Blood Count 3.73 Hemoglobin 12.0 Hematocrit 34.4 Mean Corpuscular Volume 92.4 Mean Corpuscular Hemoglobin 32.2 Mean Corpuscular Hemoglobin 34.9 Concent Red Cell Distribution Width 14.0 Platelet Count 124 Mean Platelet Volume 8.8 Neutrophils (%) (Auto) 71.2 Lymphocytes (%) (Auto) 18.3 Monocytes (%) (Auto) 8.1 Eosinophils (%) (Auto) 1.7 Basophils (%) (Auto) 0.7 Neutrophils # (Auto) 4.1 Lymphocytes # (Auto) 1.0 Monocytes # (Auto) 0.5 Eosinophils # (Auto) 0.1 Basophils # (Auto) 0.0 CBC Comment DIFF FINAL Differential Comment Sodium Level 142 Potassium Level 2.8 Chloride Level 110 Carbon Dioxide Level 21.8 Anion Gap 10 Blood Urea Nitrogen 6 Creatinine 0.76 Estimat Glomerular Filtration 75 Rate Random Glucose 129 Calcium Level 8.3 Date/Time Procedure Status Source Growth 02/03/17 20:50 Urine Culture - Final Complete Urine Clean Catch 10-50,000 CFU/ML MIXED GRISEL... Cardiovascular: Regular Lungs: Clear Abdomen: Other (soft, nt/nd) A/P Assessment and Plan Patient with mesenteric vessel stenosis (SMA) and TONY occlusion; abdominal pain resolved, wbc normal Plan: Continued observation ok to advance diet Will follow Rupesh Black MD Feb 07, 2017 09:55
[2017-02-07] MEDS: LEVOFLOXACIN 750 MG PREMIX INJ 150 ML IV SCH (12:57)
[2017-02-08] VITALS (12 sets, daily range): BP systolic 117–184; BP diastolic 54–88; PULSE 57–82; RESP 16–22; TEMP 96.9–97.7; O2SAT 93–97
[2017-02-08] MEDS: metroNIDAZOLE 500 MG INJ 100 ML IV SCH ×2 (00:06→08:45)
[2017-02-08] MEDS: ZOLPIDEM TARTRATE 5 MG TAB PO PRN (00:06)
[2017-02-08] MEDS: PANTOPRAZOLE SODIUM 40 MG VIAL IV PUSH SCH ×2 (00:06→22:43)
[2017-02-08] MEDS: DEXT 5%-NACL 0.9% 1000 ML INJ 1,000 ML IV SCH (00:49)
[2017-02-08] MEDS: cloNIDine HCL 0.1 MG TAB PO PRN (05:12)
--- NOTE | 2017-02-08 07:16 | HHI.FPPN ---
Subjective Remarks npo now c/o diarrhea w po intake but no abdom pain d/w dr Angeles Objective Vitals Vital Signs Date Time Temp Pulse Resp B/P Pulse Ox O2 Delivery O2 Flow Rate FiO2 02/08/17 04:16 97.7 59 20 184/88 96 02/08/17 01:06 96.9 70 22 136/74 96 02/07/17 21:35 Room Air 02/07/17 21:17 97.7 70 22 170/64 96 02/07/17 20:00 73 02/07/17 16:00 97.9 70 20 176/72 98 02/07/17 16:00 Room Air 02/07/17 12:00 Room Air 02/07/17 12:00 97.5 67 18 152/72 96 02/07/17 08:53 Room Air 02/07/17 08:49 66 02/07/17 08:00 97.2 76 20 158/95 96 I/O 02/07/17 02/07/17 02/07/17 02/08/17 02/08/17 02/08/17 07:00 15:00 23:00 07:00 15:00 23:00 Intake Total 648 ml 1196 ml 919 ml Output Total 1600 ml Balance -952 ml 1196 ml 919 ml Intake Oral 480 ml 360 ml IV Total 648 ml 716 ml 559 ml Output Urine Total 1600 ml # Voids 1 1 2 # Bowel Movements 2 1 1 1 Result Diagram: 02/07/17 0559 02/07/17 0559 Objective Remarks GENERAL: SKIN: Warm and dry. HEAD: Atraumatic. Normocephalic. EYES: Pupils equal and round. No scleral icterus. No injection or drainage. ENT: No nasal bleeding or discharge. Mucous membranes pink and moist. NECK: Trachea midline. No JVD. CARDIOVASCULAR: Regular rate and rhythm. RESPIRATORY: No accessory muscle use. Clear to auscultation. Breath sounds equal bilaterally. GASTROINTESTINAL: Abdomen soft, non-tender, nondistended. Hepatic and splenic margins not palpable. MUSCULOSKELETAL: Extremities without clubbing, cyanosis, or edema. No obvious deformities. NEUROLOGICAL: Awake and alert. No obvious cranial nerve deficits. Motor grossly within normal limits. Five out of 5 muscle strength in the arms and legs. Normal speech. PSYCHIATRIC: Appropriate mood and affect; insight and judgment normal. Medications and IVs Current Medications Medications (Trade) Dose Ordered Sig/Geri Route Start Time Stop Time Status Last Admin (Aspirin Chew) 81 mg DAILY CHEW 02/04/17 09:00 02/08/17 08:45 (Wellbutrin) 150 mg DAILY PO 02/04/17 09:00 02/08/17 08:45 (Plavix) 75 mg DAILY PO 02/04/17 09:00 02/08/17 08:45 (Pill Splitter) 1 ea UNSCH PRN OTHER 02/03/17 22:45 (NS Flush) 2 ml UNSCH PRN IV FLUSH 02/03/17 22:45 02/05/17 03:59 (NS Flush) 2 ml BID IV FLUSH 02/04/17 09:00 02/07/17 21:15 (Tylenol) 650 mg Q4H PRN PO 02/03/17 22:45 (Zofran Inj) 4 mg Q6H PRN IVP 02/03/17 22:45 (Compazine Supp) 25 mg Q12H PRN RECTAL 02/03/17 22:45 (Ambien) 5 mg HS PRN PO 02/03/17 22:45 02/08/17 00:06 (Narcan Inj) 0.4 mg UNSCH PRN IV 02/03/17 22:45 (Milk Of Magnesia Liq) 30 ml Q12H PRN PO 02/03/17 22:45 (Senokot) 17.2 mg Q12H PRN PO 02/03/17 22:45 (Dulcolax Supp) 10 mg DAILY PRN RECTAL 02/03/17 22:45 (Lactulose Liq) 30 ml DAILY PRN PO 02/03/17 22:45 (Brenham 5-325 Mg) 1 tab Q4H PRN PO 02/03/17 22:45 (Ativan) 0.5 mg Q8H PRN PO 02/03/17 22:45 Clonidine 0.1 mg 0.1 mg Q6H PRN PO 02/03/17 22:45 02/08/17 05:12 (Flagyl 500 Mg Inj) 100 ml @ 100 mls/hr Q8H IV 02/04/17 00:00 02/08/17 08:45 (Morphine Inj) 5 mg Q4H PRN IV PUSH 02/03/17 22:45 02/05/17 08:13 Pantoprazole Sodium 40 mg 40 mg Q24H IV PUSH 02/03/17 22:45 02/08/17 00:06 Dextrose/Sodium Chloride 1,000 ml @ 84 mls/hr [id number] IV 02/03/17 23:00 02/08/17 00:49 (Levaquin 750 Mg Premix Inj) 150 ml @ 100 mls/hr Q24H IV 02/05/17 13:00 02/07/17 12:57 A/P Assessment and Plan ASSESSMENT- 1. 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 2. SMA stenosis. 3. Descending colitis. 4. Right common iliac artery severe stenosis. 5. Hypertension. 6. Hyperglycemia. 7. Renal insufficiency. 8. Elevated LFTs. 9. COPD. 10. Smoker. 11. Left rotator cuff tear. 12. hypokalemia PLAN- d/w Dr Angeles, Plans to intervene on iliacs... NPO now ivf Replace K. Vascular surgery consult. General surg consult. IV Levaquin. IV Flagyl. Infectious Disease consult for likely ischemic colitis versus more unlikely infectious colitis. Clonidine p.r.n. Plavix 75 mg daily. Ativan p.r.n. Morphine p.r.n. Protonix 40 mg IV daily. Urine culture. Telemetry. SCDs. TEDs. Will continue with smoking cessation aggressively as I had recently started her on Wellbutrin. Brett Haywood MD Feb 08, 2017 07:16
[2017-02-08 08:14] LABS: BICARBONATE 24.3 MEQ/L (21.0-32.0); POTASSIUM 3.2 MEQ/L (3.5-5.1)
[2017-02-08] MEDS: buPROPion HCL 100 MG TAB PO SCH (08:45)
[2017-02-08] MEDS: CLOPIDOGREL 75 MG TAB PO SCH (08:45)
[2017-02-08] MEDS: ASPIRIN 81 MG CHEW TAB CHEW SCH (08:45)
[2017-02-08] MEDS: SODIUM CHLORIDE 0.9% FLUSH 10 ML FLUSH IV FLUSH SCH ×2 (08:45→21:00)
[2017-02-08] MEDS ORDERED: MIDAZOLAM HCL 5 MG/5 ML VIAL ONE (11:16)
[2017-02-08] MEDS ORDERED: fentaNYL CITRATE 250 MCG/5 ML AMP ONE (11:17)
--- NOTE | 2017-02-08 11:17 | PD.VS.PN ---
Subjective Subjective/Hospital Course Pt sitting in bed w/o complaints of abdominal pain (2 days) Pt c/o diarrhea episodes Objective Vitals/I&O Date Time Temp Pulse Resp B/P Pulse Ox O2 Delivery O2 Flow Rate FiO2 02/08/17 08:30 Room Air 02/08/17 08:03 66 02/08/17 08:00 97.5 68 16 160/80 96 02/08/17 04:16 97.7 59 20 184/88 96 02/08/17 01:06 96.9 70 22 136/74 96 02/07/17 21:35 Room Air 02/07/17 21:17 97.7 70 22 170/64 96 02/07/17 20:00 73 02/07/17 16:00 97.9 70 20 176/72 98 02/07/17 16:00 Room Air 02/07/17 12:00 Room Air 02/07/17 12:00 97.5 67 18 152/72 96 Physical Exam GENERAL: Obese 71/F/A&OX3,NAD SKIN: Warm and dry CARDIOVASCULAR: +S1,S2 RESPIRATORY: BS CTA/No accessory muscle use. GASTROINTESTINAL: Abdomen s/nt, + BS MUSCULOSKELETAL: No cyanosis, or edema. Laboratory Laboratory Tests Test 02/08/17 07:10 Sodium Level 145 Potassium Level 3.2 Chloride Level 113 Carbon Dioxide Level 24.3 Anion Gap 8 Blood Urea Nitrogen 6 Creatinine 0.69 Estimat Glomerular Filtration 84 Rate Random Glucose 129 Calcium Level 8.9 Date/Time Procedure Status Source Growth 02/03/17 20:50 Urine Culture - Final Complete Urine Clean Catch 10-50,000 CFU/ML MIXED GRISEL... Assessment and Plan Assessment: (1) Abdominal pain Status: Acute (2) Mesenteric artery stenosis Status: Acute Plan Plan Pt with improved abdominal pain since previous assessment Will have patient F/U in our OPC in 1M with a surveillance duplex Maria Antonia DANG [facility] [phone] Problem Qualifiers (1) Abdominal pain: Qualified Code: R10.30 - Lower abdominal pain Maria Antonia Lockwood Feb 08, 2017 11:17
[2017-02-08] MEDS ORDERED: VERAPAMIL HCL 5 MG/2 ML VIAL ONE (12:03)
[2017-02-08] MEDS ORDERED: NITROGLYCERIN 1000 MCG/5 ML VIAL OTHER ONE (12:06)
--- NOTE | 2017-02-08 13:22 | HHI.PR ---
Addendum to Inpatient Note Additional Information attempted to see the pt - she is off the floor no fever, no leukocytosis for radiological procedure C.diff negative A/P: Ischemic colitis - no e/o C.diff - no sepsis dc x Niya Alicia MD Feb 08, 2017 13:22
[2017-02-08] MEDS ORDERED: PROTAMINE SULFATE 50 MG/5 ML VIAL ONE ×2 (13:23→13:31)
--- NOTE | 2017-02-08 13:49 | PD.RAD ---
Post Procedure Progress Note Pre Procedure Diagnosis: (1) Occlusion of left subclavian artery (2) Peripheral vascular disease Post Procedure Diagnosis: (1) Peripheral vascular disease Procedure Date: Feb 08, 2017 Supervising Radiologist: Juan Davison Proceduralist/Assist: Pietro Gutiérrez, RT(R), Mary Jo Olvera, RT(R)() Estimated blood loss: <10 ml Anesthesia: Conscious Sedation Plan of Activity Patient to Unit: Nursing Unit Patient Condition: Good Additional Comments: Patient has significant short distance buttock claudication. CT shows right common iliac occlusion and prox left common iliac severe stenosis. This was confirmed with angiography. Placed kissing 7mm iliac stents with now excellent inflow. Outflow is intact. Suboptimal view of runoff vessels but appear intact. Will continue to follow regarding mesenteric ischemia as currently pt is asymptomatic and tolerating PO. Still concerned regarding suboptimal GDA collateral flow which may result in ischemia with low flow states. May need SMA stent in the near future. See PACS Report for procedural detail/treatment Juan Davison MD Feb 08, 2017 13:49
[2017-02-08] MEDS ORDERED: HYDROmorphone HCL PF 2 MG/ML VIAL ONE (14:05)
[2017-02-08] MEDS ORDERED: IODIXANOL 320 MG/ML 50 ML VIAL (for RAD SPEC) I-ARTERIAL ONE (15:03)
[2017-02-08] MEDS: ACETAMINOPHEN/HYDROcodone 325 MG/5 MG TAB PO PRN ×2 (16:57→21:01)
[2017-02-08] MEDS: D5-1/2 NS + KCL 20 MEQ INJ 1,000 ML IV SCH (16:57)
--- NOTE | 2017-02-08 17:43 | RADRPT ---
EXAM DATE/TIME: 02/08/2017 11:53 [place] COMPARISON: No previous studies available for comparison. INDICATIONS : 71 year-old female with history of known peripheral vascular disease and mesenteric ischemia. Patient status post celiac artery stent pain with questionable acute episode of mesenteric ischemia. Patient has since recovered and is now able to tolerate p.o. Therefore, plan is to follow patient clinically with low threshold for dimension of the SMA. CT angiogram examination demonstrates severe left commo n iliac artery stenosis and right common iliac artery occlusion. Patient also complains of very short distance buttock claudication. Therefore, plan is for angiography and possible intervention.. MEDICAL HISTORY : History of iliac and TONY arterial occlusion, bowel ischemia, colitis, PVD, CAD, HTN, COPD, Kincaid's esophagus, renal insufficiency. SURGICAL HISTORY : [place] of celiac artery stent, cardiac stent, right carotid endoarterectomy, total hysterectomy. ENCOUNTER: Subsequent ACUITY: 7-11 months PAIN SCORE: 0/10 FLUORO TIME: 8.1 minutes IMAGE SERIES: 5 ACCESS SITE: Bilateral Femoral artery and left radial artery SEDATION TIME: 60 minutes CONTRAST: 1.) 214 cc Visipaque (iodixanol) MEDICATION(S): 1.) 5 mg midazolam (Versed) IV 2.) 250 mcg fentanyl (Sublimaze) IV 3.) 4 mg Verapamil IART 4.) 400 mcg Nitroglycerin IART 5.) 30 mg Protamine IV 6.) 1 mg hydromorphone (Dilaudid) IV DEVICE(S): 1.) Left radial artery Terumo 6 Fr. Glidesheath Slender 2.) Left radial artery Merit PreludeSYNC radial compression device 3.) Left common iliac artery 7mm x 37mm x 75cm stent (ballooon expanding) BS Express LD Iliac 4.) Right common iliac artery 7mm x 57mm x 75cm stent (balloon expanding) BS Express LD Iliac PROCEDURE : 1. Ultrasound-guided puncture of the radial artery. 2. Conscious sedation with continuous EKG and Oximetry monitoring. 3. Angiography of the upper extremity 4. Ultrasound-guided puncture of the left and right common femoral arteries 5. Pelvic angiogram and bilateral lower extremity runoff 6. Recanalization of chronically occluded right common iliac artery 7. Placement of 7 mm bilateral common iliac artery balloon expanding stents The risks, benefits and alternatives to the procedure were explained and verbal and written consent w as obtained. The site was prepped in sterile fashion. Full sterile technique was used, including cap, mask, steri le gloves and gown and a large sterile sheet. Hand hygiene and 2% chlorhexidine and/or betadine/alco hol prep was utilized per protocol for cutaneous antisepsis. The skin and subcutaneous tissues were infiltrated with local anesthetic solution. A Barbeau test was performed prior to preparing the patient for the procedure which demonstrated type A collateral circulation. With ultrasound and fluoroscopic guidance the prescribed radial was punctu red and a vascular sheath was placed. [place] wire could not be advanced beyond the central subclavian artery. Therefore, angiography was performed with catheter placed in the subclavian artery. This demo nstrated occlusion of the left subclavian artery up to the origin of the internal mammary and thyroce rvical branches. Therefore, decision was made to perform femoral punctures. Ultrasound examination of the left common femoral artery demonstrated the artery to be patent. Single image was obtained and placed in PACS archive. Micropuncture needle was advanced into the left commo n femoral artery under direct ultrasound guidance and subsequently exchanged for a short 5 Kyrgyz she ath. 5 Kyr[place]z flush catheter was then advanced into the distal bowel aorta and pelvic enema was perfo rmed in AP projection. This confirmed extensive distal aortic atherosclerotic disease with occlusion of the right iliac artery origin. There was also severe stenosis of the proximal left common iliac ar gerardo with resultant post stenotic dilatation. The external iliac arteries and common femoral arteries were patent bilaterally. Therefore, patient was made to attempt right iliac recanalization. Ultrasound evaluation of the right common femoral artery demonstrated the artery to be patent. Single image was obtained and placed in PACS archive. Randell button was then advanced into the right common fe moral artery under direct ultrasound guidance and subsequently exchanged for a short 4 Kyrgyz sheath. A glide wire and kailee catheter were successfully advanced through the occluded right common iliac a rtery and into the abdominal aorta. Intraluminal position was confirmed with small amount of contrast . Next, both the sheaths were exchanged for 6 Kyr[place]z sheaths. 7 x 57 mm right and 7 x 37 mm left Expr ess LD balloon expandable stents were then deployed in kissing fashion. Followup angiography demonstr ated excellent angiographic results with brisk flow to the external iliac arteries. Next, bilateral l ower extremity runoff was performed. Sheaths were then removed and hemostasis obtained at the punctur e sites with manual compression. Patient tolerated the procedure well and there were no immediate post procedure complications. Conscious sedation was performed with the prescribed dosages and duration as above in the presence of an independent trained radiology nurse to assist in the monitoring of the patient. EKG and oximetry remained stable throughout the procedure. FINDINGS: Right side: Inflow: Occlusion of the right common iliac artery. Reconstitution of the distal common iliac artery via lumb ar and internal iliac collaterals. Patent external iliac artery. Diffusely diseased internal iliac ar gerardo. Patent common femoral artery. Outflow: Patent profunda. Patent SFA. Patent popliteal artery. Runoff: Limited do to patient motion and early termination of the contrast bolus. There is three-vessel runof f to the level of the ankle with posterior tibial flow to the plantar arch.Left side: Inflow: Moderate to severe and severe tandem focal stenoses of the proximal left common iliac artery with res ultant post not dilatation. Internal air artery is patent. External iliac arteries patent. Common fem oral artery is patent. Outflow: Profunda is patent. SFA is patent. Popliteal artery is patent. Runoff: Limited to patient motion and early termination of the contrast bolus. There is three-vessel runoff t o the level of the very distal calf. CONCLUSION: 1. 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 2. Occluded right common iliac artery with tandem moderate to severe and severe stenoses of the proxi mal left common iliac artery. 3. Excellent angiographic result following placement of kissing 7 mm balloon expandable common iliac artery stents. 4. Angiography, as above. Juan Davison MD on February 08, 2017 at 17:18 Board Certified Radiologist. This report was verified electronically.
[2017-02-09] VITALS (7 sets, daily range): BP systolic 104–163; BP diastolic 64–72; PULSE 71–97; RESP 18–20; TEMP 97–97.9; O2SAT 91–98
[2017-02-09] MEDS: ACETAMINOPHEN/HYDROcodone 325 MG/5 MG TAB PO PRN ×4 (01:44→14:46)
[2017-02-09] MEDS: D5-1/2 NS + KCL 20 MEQ INJ 1,000 ML IV SCH (01:48)
[2017-02-09 06:24] LABS: AUTOMATED NEUTROPHIL # 5.2 TH/MM3 (1.8-7.7); BASOPHIL # 0.1 TH/MM3 (0-0.2); BASOPHIL % 0.8 % (0.0-2.0); EOSINOPHIL # 0.2 TH/MM3 (0-0.4); EOSINOPHIL % 2.5 % (0.0-4.0); HEMATOCRIT 34.1 % (35.0-46.0); HEMO FLAGS DIFF FINAL; LYMPH % 16.6 % (9.0-44.0); LYMPHOCYTE # 1.2 TH/MM3 (1.0-4.8); MEAN CELL VOLUME 92.5 FL (80.0-100.0); MEAN CORPUSCULAR HEMOGLOBIN 31.2 PG (27.0-34.0); MEAN CORPUSCULAR HGB CONC 33.7 % (32.0-36.0); MONO % 8.7 % (0.0-8.0); NEUT % 71.4 % (16.0-70.0); PLATELET COUNT 124 TH/MM3 (150-450); RED BLOOD COUNT 3.69 MIL/MM3 (4.00-5.30); WHITE BLOOD COUNT 7.3 TH/MM3 (4.0-11.0)
[2017-02-09 06:28] LABS: BICARBONATE 14.6 MEQ/L (21.0-32.0); MAGNESIUM 1.6 MG/DL (1.5-2.5); POTASSIUM 3.7 MEQ/L (3.5-5.1)
[2017-02-09] MEDS: SODIUM CHLORIDE 0.9% FLUSH 10 ML FLUSH IV FLUSH SCH ×2 (08:22→21:51)
[2017-02-09] MEDS: ASPIRIN 81 MG CHEW TAB CHEW SCH (08:23)
[2017-02-09] MEDS: CLOPIDOGREL 75 MG TAB PO SCH (08:23)
[2017-02-09] MEDS: buPROPion HCL 100 MG TAB PO SCH (08:23)
--- NOTE | 2017-02-09 09:54 | HHI.FPPN ---
Subjective Remarks not able to walk having diarrhea taking some cereal and liquids frozen painful left shoulder dw Rn and and pt Objective Vitals Vital Signs Date Time Temp Pulse Resp B/P Pulse Ox O2 Delivery O2 Flow Rate FiO2 02/09/17 08:15 Room Air 02/09/17 08:00 71 02/09/17 08:00 97.6 77 20 143/65 97 02/09/17 05:00 97.9 77 18 127/69 97 02/09/17 04:00 Room Air 02/09/17 00:00 97.5 77 19 132/65 98 02/09/17 00:00 Room Air 02/08/17 20:31 82 02/08/17 20:00 Room Air 02/08/17 20:00 97.6 78 18 147/64 02/08/17 16:00 97.3 65 16 136/62 97 02/08/17 15:45 60 18 125/60 93 02/08/17 15:30 61 20 128/66 93 02/08/17 15:15 57 18 120/54 93 02/08/17 15:00 63 22 117/66 93 02/08/17 14:45 97.6 66 22 140/65 97 I/O 02/08/17 02/08/17 02/08/17 02/09/17 02/09/17 02/09/17 07:00 15:00 23:00 07:00 15:00 23:00 Intake Total 326 ml 479 ml 849 ml Output Total 2 ml Balance 326 ml 479 ml 847 ml Intake Oral 120 ml 240 ml IV Total 326 ml 359 ml 609 ml Output Urine Total 1 ml Stool Total 1 ml # Voids 2 1 0 # Bowel Movements 1 Result Diagram: 02/09/1715 02/09/1715 Objective Remarks GENERAL: SKIN: Warm and dry. HEAD: Atraumatic. Normocephalic. EYES: Pupils equal and round. No scleral icterus. No injection or drainage. ENT: No nasal bleeding or discharge. Mucous membranes pink and moist. NECK: Trachea midline. No JVD. CARDIOVASCULAR: Regular rate and rhythm. RESPIRATORY: No accessory muscle use. Clear to auscultation. Breath sounds equal bilaterally. GASTROINTESTINAL: Abdomen soft, non-tender, nondistended. Hepatic and splenic margins not palpable. MUSCULOSKELETAL: Extremities without clubbing, cyanosis, or edema. No obvious deformities. NEUROLOGICAL: Awake and alert. No obvious cranial nerve deficits. Motor grossly within normal limits. Five out of 5 muscle strength in the arms and legs. Normal speech. PSYCHIATRIC: Appropriate mood and affect; insight and judgment normal. Medications and IVs Current Medications Medications (Trade) Dose Ordered Sig/Geri Route Start Time Stop Time Status Last Admin (Aspirin Chew) 81 mg DAILY CHEW 02/04/17 09:00 02/09/17 08:23 (Wellbutrin) 150 mg DAILY PO 02/04/17 09:00 02/09/17 08:23 (Plavix) 75 mg DAILY PO 02/04/17 09:00 02/09/17 08:23 (Pill Splitter) 1 ea UNSCH PRN OTHER 02/03/17 22:45 (NS Flush) 2 ml UNSCH PRN IV FLUSH 02/03/17 22:45 02/05/17 03:59 (NS Flush) 2 ml BID IV FLUSH 02/04/17 09:00 02/07/17 21:15 (Tylenol) 650 mg Q4H PRN PO 02/03/17 22:45 (Zofran Inj) 4 mg Q6H PRN IVP 02/03/17 22:45 (Compazine Supp) 25 mg Q12H PRN RECTAL 02/03/17 22:45 (Ambien) 5 mg HS PRN PO 02/03/17 22:45 02/08/17 00:06 (Narcan Inj) 0.4 mg UNSCH PRN IV 02/03/17 22:45 (Milk Of Magnesia Liq) 30 ml Q12H PRN PO 02/03/17 22:45 (Senokot) 17.2 mg Q12H PRN PO 02/03/17 22:45 (Dulcolax Supp) 10 mg DAILY PRN RECTAL 02/03/17 22:45 (Lactulose Liq) 30 ml DAILY PRN PO 02/03/17 22:45 ([place] 5-325 Mg) 1 tab Q4H PRN PO 02/03/17 22:45 02/09/17 09:34 (Ativan) 0.5 mg Q8H PRN PO 02/03/17 22:45 (Catapres) 0.1 mg Q6H PRN PO 02/03/17 22:45 02/08/17 05:12 (Morphine Inj) 5 mg Q4H PRN IV PUSH 02/03/17 22:45 02/05/17 08:13 Pantoprazole Sodium 40 mg 40 mg Q24H IV PUSH 02/03/17 22:45 02/08/17 22:43 (D5-1/2 NS + KCl 20 Meq Inj) 1,000 ml @ 70 mls/hr [id number] IV 02/08/17 10:15 02/09/17 01:48 A/P Assessment and Plan ASSESSMENT- 1. 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 2. SMA stenosis. 3. Descending colitis. 4. Right common iliac artery severe stenosis. 5. Hypertension. 6. Hyperglycemia. 7. Renal insufficiency. 8. Elevated LFTs. 9. COPD. 10. Smoker. 11. Left rotator cuff tear. 12. hypokalemia PLAN- d/w Dr Angeles- Patient has significant short distance buttock claudication. CT shows right common iliac occlusion and prox left common iliac severe stenosis. This was confirmed with angiography. Placed kissing 7mm iliac stents with now excellent inflow. Outflow is intact. Suboptimal view of runoff vessels but appear intact.Will continue to follow regarding mesenteric ischemia as currently pt is asymptomatic and tolerating PO. Still concerned regarding suboptimal GDA collateral flow which may result in ischemia with low flow states. May need SMA stent in the near future. Phys therapy now as pt unable to get OOB and denies snf. Ortho consult for frozen left shoulder. Advancing po, monitor po tolerance Vascular surgery consult. General surg consult. IV Levaquin. IV Flagyl. Infectious Disease consult for likely ischemic colitis versus more unlikely infectious colitis. Clonidine p.r.n. Plavix 75 mg daily. Ativan p.r.n. Morphine p.r.n. Protonix 40 mg IV daily. Urine culture. Telemetry. SCDs. TEDs. Will continue with smoking cessation aggressively as I had recently started her on Wellbutrin. Brett Haywood MD Feb 09, 2017 09:54
--- NOTE | 2017-02-09 14:09 | HHI.IDPN ---
Subjective Subjective Remarks sp iliac stents placement feels better no fever denies disuria 3 Bms/day Antibiotics stopped Allergies: Coded Allergies: No Known Allergies (Unverified , 02/03/17) Objective . Vital Signs Date Time Temp Pulse Resp B/P Pulse Ox O2 Delivery O2 Flow Rate FiO2 02/09/17 11:55 97.8 97 18 163/72 97 02/09/17 08:15 Room Air 02/09/17 08:00 71 02/09/17 08:00 97.6 77 20 143/65 97 02/09/17 05:00 97.9 77 18 127/69 97 02/09/17 04:00 Room Air 02/09/17 00:00 97.5 77 19 132/65 98 02/09/17 00:00 Room Air 02/08/17 20:31 82 02/08/17 20:00 Room Air 02/08/17 20:00 97.6 78 18 147/64 02/08/17 16:00 97.3 65 16 136/62 97 02/08/17 15:45 60 18 125/60 93 02/08/17 15:30 61 20 128/66 93 02/08/17 15:15 57 18 120/54 93 02/08/17 15:00 63 22 117/66 93 02/08/17 14:45 97.6 66 22 140/65 97 02/08/17 02/08/17 02/09/17 15:00 23:00 07:00 Intake Total 326 ml 479 ml 849 ml Output Total 2 ml Balance 326 ml 479 ml 847 ml Intake Oral 120 ml 240 ml IV Total 326 ml 359 ml 609 ml Output Urine Total 1 ml Stool Total 1 ml # Voids 1 0 . Laboratory Tests Test 02/09/17 05:15 White Blood Count 7.3 TH/MM3 Red Blood Count 3.69 MIL/MM3 Hemoglobin 11.5 GM/DL Hematocrit 34.1 % Mean Corpuscular Volume 92.5 FL Mean Corpuscular Hemoglobin 31.2 PG Mean Corpuscular Hemoglobin 33.7 % Concent Red Cell Distribution Width 14.0 % Platelet Count 124 TH/MM3 Mean Platelet Volume 8.6 FL Neutrophils (%) (Auto) 71.4 % Lymphocytes (%) (Auto) 16.6 % Monocytes (%) (Auto) 8.7 % Eosinophils (%) (Auto) 2.5 % Basophils (%) (Auto) 0.8 % Neutrophils # (Auto) 5.2 TH/MM3 Lymphocytes # (Auto) 1.2 TH/MM3 Monocytes # (Auto) 0.6 TH/MM3 Eosinophils # (Auto) 0.2 TH/MM3 Basophils # (Auto) 0.1 TH/MM3 CBC Comment DIFF FINAL Differential Comment Laboratory Tests Test 02/08/17 02/09/17 07:10 05:15 Sodium Level 145 MEQ/L 136 MEQ/L Potassium Level 3.2 MEQ/L 3.7 MEQ/L Chloride Level 113 MEQ/L 112 MEQ/L Carbon Dioxide Level 24.3 MEQ/L 14.6 MEQ/L Anion Gap 8 MEQ/L 9 MEQ/L Blood Urea Nitrogen 6 MG/DL 6 MG/DL Creatinine 0.69 MG/DL 0.65 MG/DL Estimat Glomerular Filtration 84 ML/MIN 90 ML/MIN Rate Random Glucose 129 MG/DL 112 MG/DL Calcium Level 8.9 MG/DL 9.0 MG/DL Magnesium Level 1.6 MG/DL Imaging Last Impressions Lower Extremity Angiography 02/08/17 0000 Signed Impressions: Service Date/Time: Wednesday, February 08, 2017 11:53 - CONCLUSION: 1. 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 2. Occluded right common iliac artery with tandem moderate to severe and severe stenoses of the proximal left common iliac artery. 3. Excellent angiographic result following placement of kissing 7 mm balloon expandable common iliac artery stents. 4. Angiography, as above. Juan Davison MD Abdomen/Pelvis CT 02/03/17 0000 Signed Impressions: Service Date/Time: Friday, February 03, 2017 20:42 - CONCLUSION: 1. Status post celiac artery stent placement. Stent is patent. Probable mild stenosis at the distal stent junction exaggerated by vessel tortuosity and post stenotic dilatation. However, there is non-standard celiac anatomy with separate origin of the right hepatic artery from the celiac trunk. This correlates to small caliber common hepatic artery and small caliber gastroduodenal artery with potential implications for collateral blood flow to the SMA. 2. Likely moderate , up to 50%%, stenosis of the SMA origin. TONY is occluded at the origin. There is associated diffuse descending colon colitis, perhaps slightly progressed from previous examination. This is concerning for continued ischemia in the TONY territory. 3. 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 The patient may benefit from inflow intervention. 4. 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 Typical followup course for Bosniak 2F lesions is approximately 4 years (from 06/2016) with imaging performed at 6 month intervals. This may be ultrasound examination if this lesion is sufficiently visualized with ultrasound. Juan Davison MD Physical Exam CONSTITUTIONAL/GENERAL: This is an adequately nourished patient, in no apparent distress. SKIN: No jaundice, rashes, or lesions. Skin temperature appropriate. Not diaphoretic. GASTROINTESTINAL: Abdomen soft, mildly diffusely tender, moderatelydistended. No hepato-splenomegaly, or palpable masses. No guarding. Bowel sounds present. GENITOURINARY: Without palpable bladder distension. Assessment & Plan Remarks Probable ischemic colitis in a pt with known mesenteric artery stenosis - Dr Cohn ff - vas interventions planned pending arteriogram results C.diff negative Leukocytosis, mildl on presentation - resolved Pyuria, clx cw contam; pt was on short term levaquine course, denies disuria - no need for abx - no need for repeating urinalysis will sign off, please reconsuilt if any further questions Niya Alicia MD Feb 09, 2017 14:09
--- NOTE | 2017-02-09 18:56 | MB ---
cc: GAEL DAWN M.D. DATE OF CONSULTATION 02/09/17 REASON FOR CONSULTATION Left shoulder pain and stiffness. HISTORY OF PRESENT ILLNESS This patient is a 71-year-old female who was initially admitted to [facility] with abdominal pain and colitis along with urinary tract infection. She is also being diagnosed With severe peripheral vascular disease and has undergone interventional radiology stenting of her bilateral lower extremities. In regards to her left shoulder with her history, she has had a 3-month history of increasing pain and stiffness in regards to her left shoulder. She denies trauma. She states the pain and stiffness have gotten progressively worsen. She can hardly use her arm at this point. No numbness or tingling, no referred symptoms. She has undergone previous MRI imaging on ab outpatient basis and Dr. Brett Haywood has requested a consultation fir the patient's shoulder at this stage. PAST MEDICAL HISTORY 1. Peripheral vascular disease, 2. Hypertension, 3. Kincaid's esophagitis 4. Hysterectomy. 5. Cardiac stent placement, 6. Carotid endarterectomy. SOCIAL HISTORY She is a one pack a day smoker. Denies drug use. ALLERGIES NO KNOWN DRUG ALLERGIES. MEDICATIONS 1. Bupropion 2. Gemfibrozil 3. Prilosec. 4. Lasix. 5. Lisinopril 6. Metoprolol 7. Aspirin. 8. Potassium. 9. Ipratropium. 10. Crestor. REVIEW OF SYSTEMS Negative for 12 systems. PHYSICAL EXAMINATION VITAL SIGNS: Temperature 98, pulse 82, respirations 16, blood pressure 150/60. GENERAL: The patient is awake, alert lying in bed in no acute distress. HEENT: Normocephalic, traumatic. Pupils are round. Extraocular muscles are intact. NECK: Supple. LUNGS: Clear. HEART: Regular rate and rhythm. ABDOMEN: Soft, nontender. EXTREMITIES: Left shoulder shows skin is intact. tenderness to palpation along the anterior aspect. Range of motion active for flexion, 70 degrees on the left, passive is 90 degrees with pain. She has passive and active limited range of motion with internal and external rotation testing. Right shoulder has full motion which is painless. There is no instability of either shoulder upon clinical examination. She had pain with testing of strength in the left leg compared to the right. 2+ radial pulses. Neurovascularly intact distally bilateral upper extremities. I did review the MRI of the left shoulder [facility] February 01, 2017 and this shows rotator cuff tendinosis with a 17 x 6 mm full-thickness rotator cuff tear of the supraspinatus tendon. There is adhesive capsulitis of the glenohumeral joint, degenerative labral tearing, moderate bursitis and moderate osteoarthritis of the acromioclavicular joint. IMPRESSION A 71-year-old female left shoulder pain and stiffness progressive with adhesive capsulitis. She has MRI evidence of rotator cuff tear, but the adhesive capsulitis portion dominates the clinical picture. PLAN I discussion diagnosis and treatment options. I have recommended physical therapy and instructed the patient on detailed range of motion exercise program to try to regain range of motion and strength. I would not recommend surgical intervention for her condition at this stage. She will require outpatient physical therapy. She can follow up with the undersigned at the [facility] on an outpatient basis after discharge from the hospital. MD AWA Woodall/ /6:16 PM /6:33 PM
[2017-02-09] MEDS: PANTOPRAZOLE SODIUM 40 MG VIAL IV PUSH SCH (21:50)
[2017-02-09] MEDS: ZOLPIDEM TARTRATE 5 MG TAB PO PRN (23:32)
[2017-02-10] VITALS: BP 149/57; PULSE 89; RESP 18; TEMP 98.1; O2SAT 95
[2017-02-10 04:00] VITALS: BP 125/75; PULSE 94; RESP 18; TEMP 97.8; O2SAT 96
[2017-02-10 08:00] VITALS: BP_SYST 160; BP_SYST 178; BP_DIAS 77; BP_DIAS 80; PULSE 88; RESP 18; TEMP 97.7; O2SAT 96
--- NOTE | 2017-02-10 08:08 | HHI.FF ---
Face to Face Verification Diagnosis: (1) Adhesive capsulitis (2) Occlusion of left subclavian artery (3) Peripheral vascular disease (4) HTN (hypertension) (5) Ischemic colitis (6) Hypokalemia (7) Mesenteric artery stenosis (8) Abdominal pain (9) Dependent edema (10) Nausea & vomiting (11) History of Kincaid's esophagus (12) Lactic acidosis Physical Therapy Order: Evaluate and Treat, Improve ambulation, Strength and gait training Home Health Nursing Order: Medical education Signs/symptoms of disease process Medication education-adverse effect Nursing assessment with vital signs Telehealth I have seen patient Karen Knight on 02/10/17. My clinical findings support the need for the requested home health care services because: Ltd mobility - disease progression Patient has SOB Deconditioned w/ increased weakness Med compliance is questionable Limited ability to care for self I certify that my clinical findings support that this patient is homebound because: Post-op weakness Hx COPD- exertion dyspnea/weakness Unsteady gait/balance Unsafe to leave home unassisted Need for psychosocial assistance Poor cardiac reserve Brett Haywood MD Feb 10, 2017 08:08
--- NOTE | 2017-02-10 08:10 | HHI.DS ---
Discharge Summary Admission Date Feb 04, 2017 at 13:50 Discharge Date: Feb 10, 2017 Admitting Diagnosis colitis, urinary tract infection (1) Mesenteric artery stenosis (2) Ischemic colitis (3) HTN (hypertension) (4) Hypokalemia CBC/BMP: 02/09/17 0515 02/09/17 0515 Significant Findings Laboratory Tests Test 02/08/17 02/09/17 07:10 05:15 Potassium Level 3.2 MEQ/L (3.5-5.1) Chloride Level 113 MEQ/L 112 MEQ/L (98-107) (98-107) Blood Urea Nitrogen 6 MG/DL (7-18) 6 MG/DL (7-18) Estimat Glomerular Filtration 84 ML/MIN (>89) Rate Random Glucose 129 MG/DL 112 MG/DL (74-106) (74-106) Red Blood Count 3.69 MIL/MM3 (4.00-5.30) Hemoglobin 11.5 GM/DL (11.6-15.3) Hematocrit 34.1 % (35.0-46.0) Platelet Count 124 TH/MM3 (150-450) Neutrophils (%) (Auto) 71.4 % (16.0-70.0) Monocytes (%) (Auto) 8.7 % (0.0-8.0) Carbon Dioxide Level 14.6 MEQ/L (21.0-32.0) PE at Discharge GENERAL: SKIN: Warm and dry. HEAD: Atraumatic. Normocephalic. EYES: Pupils equal and round. No scleral icterus. No injection or drainage. ENT: No nasal bleeding or discharge. Mucous membranes pink and moist. NECK: Trachea midline. No JVD. CARDIOVASCULAR: Regular rate and rhythm. RESPIRATORY: No accessory muscle use. Clear to auscultation. Breath sounds equal bilaterally. GASTROINTESTINAL: Abdomen soft, non-tender, nondistended. Hepatic and splenic margins not palpable. MUSCULOSKELETAL: Extremities without clubbing, cyanosis, or edema. No obvious deformities. NEUROLOGICAL: Awake and alert. No obvious cranial nerve deficits. Motor grossly within normal limits. Five out of 5 muscle strength in the arms and legs. Normal speech. PSYCHIATRIC: Appropriate mood and affect; insight and judgment normal. Hospital Course 71 y cf, admit with - ASSESSMENT- 1. 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 2. SMA stenosis. 3. Descending colitis. 4. Right common iliac artery severe stenosis. 5. Hypertension. 6. Hyperglycemia. 7. Renal insufficiency. 8. Elevated LFTs. 9. COPD. 10. Smoker. 11. Left rotator cuff tear. 12. hypokalemia Hospital course and plan was to - d/w Dr [place]- Patient has significant short distance buttock claudication. CT shows right common iliac occlusion and prox left common iliac severe stenosis. This was confirmed with angiography. Placed kissing 7mm iliac stents with now excellent inflow. Outflow is intact. Suboptimal view of runoff vessels but appear intact.Will continue to follow regarding mesenteric ischemia as currently pt is asymptomatic and tolerating PO. Still concerned regarding suboptimal GDA collateral flow which may result in ischemia with low flow states. May need SMA stent in the near future. Phys therapy now as pt unable to get OOB and denies snf. Ortho consult for frozen left shoulder. Advancing po, monitor po tolerance Vascular surgery consult. General surg consult. IV Levaquin. IV Flagyl. Infectious Disease consult for likely ischemic colitis versus more unlikely infectious colitis. Clonidine p.r.n. Plavix 75 mg daily. Ativan p.r.n. Morphine p.r.n. Protonix 40 mg IV daily. Urine culture. Telemetry. SCDs. TEDs. Will continue with smoking cessation aggressively as I had recently started her on Wellbutrin. Discharge Disposition: Disch w/ Home Health Serv Discharge Instructions DIET: Follow Instructions for: Heart Healthy Diet Activities you can perform: Regular-No Restrictions Continued Medications: Aspirin (Aspirin) 81 Mg Chew 81 MG CHEW DAILY Ref 0 TAB Bupropion HCl (Bupropion HCl) 100 Mg Tab 150 MG PO DAILY Control Depression Ref 0 TAB Clopidogrel (Plavix) 75 Mg Tab 75 MG PO DAILY stent Days 30 TAB Furosemide (Furosemide) 40 Mg Tab 40 MG PO DAILY #30 Ref 0 TAB Gemfibrozil (Gemfibrozil) 600 Mg Tab 600 MG PO BIDAC Take 30 minutes prior to breakfast and dinner. #60 Ref 0 TAB Ipratropium Nasal (Ipratropium Nasal) 0.03% [place] 2 SPRAY EACH NARE BID Allergies Omeprazole Magnesium (Prilosec) 20 Mg Tab 20 MG PO DAILY Potassium Chloride ER (Potassium Chloride ER) 10 Meq Cap 10 MEQ PO HS Electrolyte Replacement #30 Ref 0 CAP Rosuvastatin (Crestor) 40 Mg Tab 40 MG PO DAILY Cholesterol Management Ref 0 TAB Discontinued Medications: Lisinopril (Lisinopril) 10 Mg Tab 10 MG PO DAILY #30 Ref 0 TAB Metoprolol Succinate ER 24 HR (Metoprolol Succinate ER 24 HR) 25 Mg Tab 25 MG PO DAILY #30 Ref 0 TAB Brett Haywood MD Feb 10, 2017 08:10
--- NOTE | 2017-02-10 08:12 | HHI.DCPOC ---
Discharge Care Plan Diagnosis: (1) History of [place]'s esophagus (2) Nausea & vomiting (3) Dependent edema (4) Lactic acidosis (5) Adhesive capsulitis (6) Occlusion of left subclavian artery (7) Peripheral vascular disease (8) HTN (hypertension) (9) Ischemic colitis (10) Mesenteric artery stenosis (11) Hypokalemia Goals to Promote Your Health * To prevent worsening of your condition and complications * To maintain your health at the optimal level Directions to Meet Your Goals Take your medications as prescribed Follow your dietary instruction Follow activity as directed Keep your appointments as scheduled Take your immunizations and boosters as scheduled If your symptoms worsen call your PCP, if no PCP go to Urgent Care Center or Emergency Room Smoking is Dangerous to Your Health. Avoid second hand smoke Call the 24-hour hour crisis hotline for domestic abuse at Brett Haywood MD Feb 10, 2017 08:12
[2017-02-10] MEDS: SODIUM CHLORIDE 0.9% FLUSH 10 ML FLUSH IV FLUSH SCH (09:00)
[2017-02-10] MEDS: CLOPIDOGREL 75 MG TAB PO SCH (09:05)
[2017-02-10] MEDS: ASPIRIN 81 MG CHEW TAB CHEW SCH (09:06)
[2017-02-10] MEDS: buPROPion HCL 100 MG TAB PO SCH (09:06)
[2017-02-10 11:41] VITALS: PULSE 96
== END 2017-02-10 09:58 | disposition home health service (06) | DRG 253 ==
LOC: NEPC 18:22 → NEDA 22:35 → NEPHCDU 02-04 00:30 → OBSVTOIN 02-04 13:50 → N04A 02-04 18:57
PROVIDERS: ADMIT Family Medicine; ATTEND Family Medicine
PROC: 047C3EZ Dilation of Right Common Iliac Artery with Two Intraluminal Devices, Percutaneous Approach (ICD-10-PCS; principal; 2017-02-08)
DX: I70.213 Atherosclerosis of native arteries of extremities with intermittent claudication, bilateral legs (principal); K55.1 Chronic vascular disorders of intestine; J44.9 Chronic obstructive pulmonary disease, unspecified; K21.9 Gastro-esophageal reflux disease without esophagitis; K22.70 Barrett's esophagus without dysplasia; I10 Essential (primary) hypertension; I25.10 Atherosclerotic heart disease of native coronary artery without angina pectoris; F17.210 Nicotine dependence, cigarettes, uncomplicated; E87.6 Hypokalemia; I70.8 Atherosclerosis of other arteries; R79.89 Other specified abnormal findings of blood chemistry; E78.5 Hyperlipidemia, unspecified; M75.02 Adhesive capsulitis of left shoulder; R73.9 Hyperglycemia, unspecified; Z79.02 Long term (current) use of antithrombotics/antiplatelets; Z95.5 Presence of coronary angioplasty implant and graft
CPT/HCPCS: 36200; 36216; 37236; 37237; 74174; 75710; 75716; 76937; 80048; 80053; 81001; 83605; 83690; 83735; 85025; 85347; 85610; 85730; 87086; 87493; 96365; 96375; 99152; 99153; C1751; C1769; C1876; C1887; C1894; C9113; G0378; J0696; J1170; J1644; J1956; J2250; J2270; J2720; J3010; J3480; J7030; J7042; Q9967